=== PATIENT | female | born 1955 | race Caucasian/White ===

== ENCOUNTER 2021-08-15 08:44 | Emergency (ER) | payer MEDICARE, SELFPAY ==
--- NOTE | 2021-08-15 08:47 | ED.SKABFB ---
HPI - Skin/Abscess/Foreign Bdy General Chief complaint: Skin/Abscess/Foreign Body Stated complaint: right finger wasp sting Time Seen by Provider: 08/15/21 08:46 Source: patient Mode of arrival: ambulatory Limitations: no limitations History of Present Illness HPI narrative: Ms. Grande is a 66-year-old female patient presenting to the clinic today with complaints of a wasp sting to her right finger that occurred on Thursday. She reports that she picked up a habitat conservation planner and a box was under the lip of the plantar and she thinks she was stung twice to the lateral mid right third finger. Bruising and swelling noted to the finger and she is having difficulty bending the finger due to the pain and swelling. Related Data Home Medications Medication Instructions Recorded Confirmed duloxetine mg PO 08/15/21 gabapentin 08/15/21 hydroxychloroquine PO 08/15/21 isosorbide mononitrate mg PO 08/15/21 latanoprost drp 08/15/21 levothyroxine 08/15/21 metoprolol succinate PO 08/15/21 metoprolol succinate PO 08/15/21 oxybutynin chloride mg PO 08/15/21 oxybutynin chloride mg PO 08/15/21 rosuvastatin mg 08/15/21 tramadol mg 08/15/21 Allergies Allergy/AdvReac Type Severity Reaction Status Date / Time metronidazole Allergy Unknown UNKNOWN Verified 08/18/17 14:00 morphine Allergy Unknown VOMITTING Verified 08/18/17 14:00 Penicillins Allergy Unknown RASH Verified 08/18/17 14:00 Sulfa (Sulfonamide Allergy Unknown RASH Verified 08/18/17 14:00 Antibiotics) Review of Systems Review of Systems: Pertinent positives per HPI. Patient denies any fever, chills, rash, headache, visual changes, dizziness, cough, runny nose, sore throat, shortness of breath, chest pain, palpitations, nausea, vomiting, diarrhea, constipation, abdominal pain, or any urinary issues. PMFSH Comments At the time of my signature, I reviewed and agree with the nursing past medical, surgical, social, and family history. There is no relevant family history pertinent to the patient complaint. Exam Narrative: General: Well-developed, well nourished, in no apparent distress Head: Normocephalic, atraumatic. Cardio: Regular rate and rhythm, s1 and s2 normal, no murmur appreciated. Resp: Clear to auscultation bilaterally, no rhonchi, rales, wheezing or rubs. Integumentary: Blue [place], warm, and dry, intact without lesion, redness and swelling to the right third finger with site of insect sting to the lateral mid finger. Unable to bend due to swelling and pain, tender to palpation and erythemic Course Course Emergency Course: Portions of this record may have been created with voice recognition software. Level of Care: Express Care Visit Vital Signs Vital signs: Vital Signs Temperature 36.8 C 08/15/21 08:54 Pulse Rate 66 08/15/21 08:54 Respiratory Rate 16 08/15/21 08:54 Blood Pressure 131/68 08/15/21 08:54 Pulse Oximetry 100 08/15/21 08:54 Temperature 36.8 C 08/15/21 08:54 Pulse Rate 66 08/15/21 08:54 Respiratory Rate 16 08/15/21 08:54 Blood Pressure 131/68 08/15/21 08:54 Pulse Oximetry 100 08/15/21 08:54 Vital signs reviewed MDM - Skin/Abscess/Foreign Bdy MDM Narrative Medical decision making narrative: At the time of visit patient is resting comfortably on the exam table. She has an infected insect sting to the right third finger with swelling, erythema and tenderness to palpation without discharge. We will go ahead and give her a prescription for some triamcinolone cream to apply to the finger to help with localized reaction as well as some doxycycline to cover secondary infection. Other supportive measures were also discussed. patient voiced understanding of discharge instructions and agreed to treatment plan. Discharge Plan Discharge Clinical Impression: Infected insect bite or sting Patient Disposition: Home, Self-Care Condition: Stable Instructions: Insect Bite or Sting (ED) Additional Instructions: Phill
[2021-08-15 08:54] VITALS: BP 131/68; PULSE 66; RESP 16; TEMP 36.8; O2SAT 100
== END 2021-08-15 09:10 | disposition home or self-care (01) ==
LOC: EXPBETH 08:50
PROVIDERS: Emergency Provider Nurse Practitioner Family; PCP Internal Medicine
DX: L08.9 Local infection of the skin and subcutaneous tissue, unspecified (principal); T63.461A Toxic effect of venom of wasps, accidental (unintentional), initial encounter; E78.00 Pure hypercholesterolemia, unspecified; I10 Essential (primary) hypertension
CPT/HCPCS: 99213; G0463

== ENCOUNTER 2024-09-08 12:20 | Emergency (ER) | payer MEDICARE, MEDICAID, SELFPAY ==
--- NOTE | ~2024-09-08 | XR_ITS ---
XR hip LT 2V w AP pelvis 09/08/2024 13:20 Indication: Left hip pain Procedure: AP pelvis and 2 views left hip Comparison: No prior studies for comparison. Findings: Pelvic rings intact. There is residual contrast in the colon. Mild osteoarthritis of hips. No fracture, subluxation or dislocation. Right transsacral stimulator lead present. Impression: 1: Mild osteoarthritis of the hips. Reviewed, dictated and finalized at location B. Impression: 1: Mild osteoarthritis of the hips.
--- NOTE | 2024-09-08 12:23 | ED.EXTPRO ---
HPI - Extremity Problem General Chief complaint: Extremity Problem,Nontraumatic Stated complaint: Left Leg Pain Time Seen by Provider: 09/08/24 12:22 Source: patient Mode of arrival: ambulatory Limitations: no limitations History of Present Illness HPI Narrative: Cadence is a 61-year-old female patient presenting to the clinic today with complaints of left leg pain that started this morning. Pain is radiating down her her left leg. She reports yesterday she was out push mowing her yard, the neighbor's yard, and she was pulling weeds. Took some leg cramp medications this morning without relief. Rates pain 10/10 currently. Is feeling nauseous and having sweats due to the pain. Related Data Home Medications ?Medication ?Instructions ?Recorded ?Confirmed ?Last Taken ?Type duloxetine 30 mg capsule,delayed mg PO 08/15/21 Unknown History release gabapentin 600 mg tablet 08/15/21 Unknown History hydroxychloroquine 200 mg tablet PO 08/15/21 Unknown History isosorbide mononitrate 30 mg mg PO 08/15/21 Unknown History tablet,extended release 24 hr levothyroxine 25 mcg tablet 08/15/21 Unknown History metoprolol succinate 50 mg PO 08/15/21 Unknown History tablet,extended release 24 hr metoprolol succinate 50 mg PO 08/15/21 Unknown History tablet,extended release 24 hr oxybutynin chloride 10 mg mg PO 08/15/21 Unknown History tablet,extended release 24 hr oxybutynin chloride 5 mg mg PO 08/15/21 Unknown History tablet,extended release 24 hr rosuvastatin 10 mg tablet mg 08/15/21 Unknown History tramadol 50 mg tablet mg 08/15/21 Unknown History linaclotide 145 mcg capsule mcg 09/08/24 Unknown History (Linzess) pantoprazole 40 mg tablet,delayed mg PO 09/08/24 Unknown History release Allergies Allergy/AdvReac Type Severity Reaction Status Date / Time metronidazole Allergy Unknown UNKNOWN Verified 09/08/24 12:24 morphine Allergy Unknown VOMITTING Verified 09/08/24 12:24 Penicillins Allergy Unknown RASH Verified 09/08/24 12:24 Sulfa (Sulfonamide Allergy Unknown RASH Verified 09/08/24 12:24 Antibiotics) Review of Systems Review of Systems: Pertinent positives per HPI. Patient denies any fever, chills, rash, headache, visual changes, dizziness, cough, runny nose, sore throat, shortness of breath, chest pain, palpitations, nausea, vomiting, diarrhea, constipation, abdominal pain, or any urinary issues. PMFSH Comments At the time of my signature, I reviewed and agree with the nursing past medical, surgical, social, and family history. There is no relevant family history pertinent to the patient complaint. Exam Narrative: General: Well-developed, well nourished, in no apparent distress Head: Normocephalic, atraumatic. Cardio: Regular rate and rhythm, s1 and s2 normal, no murmur appreciated. Resp: Clear to auscultation bilaterally, no rhonchi, rales, wheezing or rubs. Musculoskeletal: No deformity, tender to palpation over the left SI joint with pain radiating down the medial leg, grossly normal range of motion, muscle strength strong and equal, peripheral pulse strong, no edema, no cyanosis, normal gait and station Course Course Emergency Course: Portions of this record may have been created with voice recognition software. Level of Care: Express Care Visit Vital Signs Vital signs: Vital Signs Temperature 36.9 C 09/08/24 12:36 Pulse Rate 75 09/08/24 12:36 Respiratory Rate 16 09/08/24 12:36 Blood Pressure 111/58 L 09/08/24 12:36 Pulse Oximetry 100 09/08/24 12:36 Oxygen Delivery Room Air 09/08/24 12:36 Temperature 36.9 C 09/08/24 12:36 Pulse Rate 75 09/08/24 12:36 Respiratory Rate 16 09/08/24 12:36 Blood Pressure 111/58 L 09/08/24 12:36 Pulse Oximetry 100 09/08/24 12:36 Oxygen Delivery Room Air 09/08/24 12:36 Vital signs reviewed MDM - Extremity (Nontraumatic) MDM Narrative Medical decision making narrative: At the time of visit patient is resting comfortably on the exam table. Patient appears to be nontoxic. Medications: Toradol 30 mg IM and Zofran 4 mg ODT given in the clinic today Diagnostics: Left hip x-ray with AP pelvis was performed and negative for any fracture or malalignment. Does show mild osteoarthritis Plan: I suspect patient has SI joint dysfunction with sciatica. Prescription for Medrol Dosepak was sent to the pharmacy. Encourage patient to use her gabapentin and her tramadol for pain. Supportive measures were discussed with the patient and they voiced understanding discharge instructions and agrees to treatment plan. Return precautions reviewed Differential Diagnosis Differential diagnosis: Likely gout and other (Sciatica pain, SI joint pain, lumbar radiculopathy, hip osteoarthritis, pathological hip fracture) Imaging Data Radiologist's impression: ITS Impressions Hip/Pelvis X-Ray 09/08/24 13:42 Impression: 1: Mild osteoarthritis of the hips. Discharge Plan Discharge Clinical Impression: Sacroiliac joint dysfunction of left side Sciatica Qualifiers: Laterality: left Qualified Code(s): M54.32 - Sciatica, left side Patient Disposition: Home Condition: Stable Instructions: Antibiotic Form, Sciatica (ED), Hip Pain (ED) Additional Instructions: Take any prescription medication only as prescribed-Medrol Dosepak Continue taking gabapentin and tramadol for pain May use heat or ice to the affected area May use blue emu, lidocaine patches, or asper cream to affected area- do not apply heat or ice directly over cream- can cause burn. Complete appropriate sciatica stretching exercises. Follow up with your PCP in 3-5 days if symptom persist. Patient Language: Japanese Prescriptions: New methylprednisolone [Medrol ([place])] 4 mg tablets,dose pack See Rx Instructions PO .COMPLEX Qty: 21 0RF Rx Instructions: orally per package directions No Action pantoprazole 40 mg tablet,delayed release (DR/EC) PO Linzess 145 mcg capsule gabapentin 600 mg tablet oxybutynin chloride 10 mg tablet extended release 24 hr PO metoprolol succinate 50 mg tablet extended release 24 hr PO metoprolol succinate 50 mg tablet extended release 24 hr PO isosorbide mononitrate 30 mg tablet extended release 24 hr PO tramadol 50 mg tablet levothyroxine 25 mcg tablet oxybutynin chloride 5 mg tablet extended release 24 hr PO hydroxychloroquine 200 mg tablet PO rosuvastatin 10 mg tablet duloxetine 30 mg capsule,delayed release(DR/EC) PO Follow-up/Referrals: UNKNOWN,DOCTOR [Primary Care Provider] - Time of Disposition: 13:52 Quality NIHSS Nursing Documentation ED NIHSS nursing documentation: reviewed/agree
[2024-09-08 12:36] VITALS: BP 111/58; PULSE 75; RESP 16; TEMP 36.9; O2SAT 100
[2024-09-08] MEDS: KETOROLAC 30 MG/ML VIAL (*BKC) IM (12:50)
[2024-09-08] MEDS: ONDANSETRON HCL ODT 4 MG TABLET SUBLINGUAL (12:51)
--- OUTSIDE RECORDS SUMMARY | 2024-09-08 12:54 | XMS_ITS | Clinical Summary ---
Author Organization [facility] Address [address] [place] [address] Care Team Providers Care Carriage Feeder Name Role Phone Janet Foote Sonya LIMA Unavailable [phone] Caroline COBB MD, Carlos M. Unavailable Sohail Clarke MD Unavailable [phone] Dilma Alonzo MD Unavailable Elizabeth Patterson MD Unavailable Jake Lo MD Unavailable [phone] Henna Ryder DPM Unavailable Shena Marie NP Primary Care Provider Allergies Active Allergy Reactions Criticality Noted Date Comments Metronidazole Unknown Morphine Vomiting Low Penicillins Itching Low Sulfa (Sulfonamide Antibiotics) Itching Low Sulfanilamide Itching Low Medications latanoprost (XALATAN) 0.005 % ophthalmic solution instill 1 drop by ophthalmic route every day into affected eye(s) in the evening 0 0 05/08/19 17 Active dezcttjj-pri-TP-ly copen-lutein (CENTRUM SILVER) 0.4-300-250 mg-mcg-mcg tablet take one by oral route one time every day 0 0 06/13/19 15 Active polyethylene glycol (MIRALAX) 17 gram/dose powder take 15 milliliter by ORAL route every day powder mixed with 8 oz. water, juice, soda, coffee, or tea 0 0 05/17/19 15 Active docusate sodium (STOOL SOFTENER) 100 mg capsule take 2 (200MG) by oral route every day at bedtime as needed 0 0 05/17/19 15 Active aspirin (ASPIRIN LOW DOSE) 81 mg tablet take 1 tablet by oral route every day 0 0 05/17/19 15 Active SUMAtriptan (IMITREX) 100 mg tabletIndications: Migraine Take 1 tablet (100 mg total) by mouth once as needed for migraine (headache) for up to 1 dose May repeat one time after 2 hours if needed. 27 tablet 1 04/05/19 21 Active Additional Information Patient not taking.Reported on 08/01/2024 Narcan 4 mg/actuation spray,non-aerosol 0 03/15/20 24 Active gabapentin (NEURONTIN) 600 mg tablet Take 1 tablet (600 mg total) by mouth 3 (three) times a day 270 tablet 1 03/31/19 25 Active traMADoL (ULTRAM) 50 mg tablet Take 1 tablet (50 mg total) by mouth every 8 (eight) hours as needed for pain 270 tablet 03/31/19 25 Active isosorbide mononitrate ER (IMDUR) 30 mg 24 hr tablet TAKE 1 TABLET BY MOUTH EVERY DAY 90 tablet 3 06/03/19 25 Active ondansetron ODT (ZOFRAN-ODT) 4 mg disintegrating tabletIndications: Nausea Take 1 tablet (4 mg total) by mouth every 6 (six) hours as needed for nausea or vomiting 20 tablet 1 06/17/19 25 Active hydroxychloroquine (PLAQUENIL) 200 mg tabletIndications: Systemic Lupus Erythematosus Take 1 tablet (200 mg total) by mouth daily 90 tablet 2 07/08/19 25 Active rosuvastatin (CRESTOR) 10 mg tabletIndications: Mixed hyperlipidemia Take 1 tablet (10 mg total) by mouth daily 90 tablet 1 07/14/19 25 026 Active metoprolol XL (TOPROL-XL) 50 mg extended release tabletIndications: Primary hypertension Take 1 tablet (50 mg total) by mouth daily 90 tablet 1 07/14/19 25 Active levothyroxine (SYNTHROID) 25 mcg tabletIndications: Acquired hypothyroidism Take 1 tablet (25 mcg total) by mouth daily 90 tablet 1 07/14/19 25 026 Active hydrocortisone 2.5 % ointment Apply topically 2 (two) times a day for 14 days 30 g 08/03/19 25 Active linaCLOtide (LINZESS) 145 mcg capsule Take 1 capsule (145 mcg total) by mouth daily 90 capsule 09/01/[address] (PROTONIX) 40 mg EC tablet Take 1 tablet (40 mg total) by mouth daily 30 tablet 2 09/03/19 25 025 Active linaCLOtide (LINZESS) 145 mcg capsule Take 1 capsule (145 mcg total) by mouth daily 90 capsule 06/09/19 25 025 Discontinu ed(Reorder ) vonoprazan (Voquezna) 20 mg tablet Take 20 mg by mouth 2 (two) times a day for 14 days 28 tablet 08/10/19 25 025 amoxicillin 500 mg tablet/capsule Take 2 tablet/capsule (1,000 mg total) by mouth 3 (three) times a day for 14 days 84 tablet/caps ule 08/10/19 25 025 Active Problems Problem Noted Date Diagnosed Date Positive H. pylori test 05/16/2024 Encounter for screening colonoscopy 04/12/2024 Hereditary and idiopathic neuropathy 04/07/2024 Overview (04/07/2024): Follows with Neurology Assessment & Plan (04/07/2024 9:07 AM BLOWER AND COMPRESSOR ASSEMBLER): - chronic condition - follows with Neurology - on Gabapentn 600 mg TID - currently on Tramadol PRN per neurology - affects her ambulation/mobility - provided handicap placard Screen for colon cancer 04/07/2024 Assessment & Plan (04/07/2024 9:17 AM BLOWER AND COMPRESSOR ASSEMBLER): - colon cancer screening due - last colonoscopy done on 2013, repeat in 10 years, placed referral to GI Hematuria 02/11/2024 Urgency incontinence 02/11/2024 Overview (04/07/2024): Following with Urology Assessment & Plan (04/07/2024 9:12 AM BLOWER AND COMPRESSOR ASSEMBLER): - chronic condition, better controlled - has a baldder stimulator interstim X device placed by Urology - this was inserted 02/2024 for overactive bladder and urinary incontiennce - follows with Urology Gastroesophageal reflux disease 12/30/2023 Assessment & Plan (12/31/2023 6:08 AM CDT): -chronic, stable -patient currently takes pantoprazole 40 mg daily -patient encouraged to continue avoiding trigger foods and remaining upright at least 30 minutes after eating or drinking -refill of medication provided -continue current treatment plan Body mass index (BMI) of 19.0 to 19.9 in adult 1 Assessment & Plan (07/13/2024 3:43 PM CDT): Wt Readings from Last 3 Encounters: 07/13/24 48.5 kg (107 lb) 05/30/24 47.6 kg (105 lb) 05/17/24 49.9 kg (110 lb) Body mass index is 19.57 kg/m . -Stable, at goal of >19 bmi -Discussed recommendations for exercise at least 30 minutes moderate to vigorous exercise as tolerated most days of the week. (minimum 150 minutes weekly) -Discussed importance of well-balanced diet Assessment & Plan (12/31/2023 6:07 AM CDT): Wt Readings from Last 3 Encounters: 12/30/23 50.2 kg (110 lb 9.6 oz) 10/08/23 49.4 kg (108 lb 12.8 oz) 09/14/23 50.6 kg (111 lb 9.6 oz) Body mass index is 19.28 kg/m . -Stable, not at goal of >19 bmi -Discussed recommendations for exercise at least 30 minutes moderate to vigorous exercise as tolerated most days of the week. (minimum 150 minutes weekly) -Discussed importance of well-balanced diet Trigger middle finger of right hand 12/30/2023 Assessment & Plan (12/31/2023 6:10 AM CDT): -new complaint, chronic -patient reports difficulty with straightening out her right middle finger -patient endorses a previous history of trigger finger in other fingers and hand -referral to sports Medicine placed -continue current treatment plan Thrombocytosis 06/23/2022 Assessment & Plan (02/08/2023 10:40 PM BLOWER AND COMPRESSOR ASSEMBLER): Mild chronic and asymptomatic. Check yearly Assessment & Plan (06/23/2022 9:55 AM CDT): Mild chronic and asymptomatic. Check again before next visit. Dysphagia 06/18/2021 Assessment & Plan (09/19/2021 9:42 AM CDT): Unremarkable barium swallow. GI referral. Assessment & Plan (06/18/2021 11:40 AM CDT): Modified barium swallow with speech pathology and radiology. Call back for results. Chronic rhinitis 06/13/2020 Assessment & Plan (06/13/2020 11:26 AM CDT): Try Claritin [id number]. Anemia 12/23/2018 Assessment & Plan (02/08/2023 10:39 PM BLOWER AND COMPRESSOR ASSEMBLER): Repeat CBC and laboratory workup before next visit. Assessment & Plan (03/11/2022 11:46 AM BLOWER AND COMPRESSOR ASSEMBLER): Condition is stable. CBC ordered today. Assessment & Plan (06/18/2021 11:40 AM CDT): Mild chronic stable, previous lab workup unremarkable. Assessment & Plan (12/23/2018 2:03 PM CDT): Check iron studies, TSH, free T4, B12, folate, LDH, UA with microscopy and call back for results. Symptoms of anemia discussed at length which would prompt repeat visit if develops. Follow-up with her oncologist/motor coach tour operator as they direct. Acquired hypothyroidism 05/13/2018 Assessment & Plan (07/13/2024 3:44 PM CDT): Lab Results Component Value Date TSH 3.66 06/29/2024 -chronic, controlled -patient currently takes Synthroid 25 mcg daily -most recent TSH within normal range -recent lab work stable -continue current treatment plan Assessment & Plan (04/07/2024 9:02 AM BLOWER AND COMPRESSOR ASSEMBLER): Lab Results Component Value Date TSH 3.52 01/01/2024 -chronic, stable -patient currently takes Synthroid 25 mcg daily -most recent TSH within normal range -will recheck lab work The current medical regimen is effective; continue present plan and medications. Assessment & Plan (12/31/2023 6:07 AM CDT): Lab Results Component Value Date TSH 2.61 06/08/2023 -chronic, stable -patient currently takes Synthroid 25 mcg daily -most recent TSH within normal range -will recheck lab work -continue current treatment plan Assessment & Plan (02/08/2023 10:39 PM BLOWER AND COMPRESSOR ASSEMBLER): Patient is asymptomatic on current dose of levothyroxine and TSH free T4 are normal and we will repeat levels before next visit. Assessment & Plan (06/23/2022 9:56 AM CDT): Patient is asymptomatic on current dose of levothyroxine and TSH free T4 are normal and we will repeat levels before next visit. Assessment & Plan (09/19/2021 9:41 AM CDT): Patient is asymptomatic on current dose of levothyroxine and TSH free T4 are normal and we will repeat levels before next visit. Assessment & Plan (06/18/2021 11:39 AM CDT): Patient has fatigue and constipation with elevated TSH and low free T4. Start levothyroxine 25 mcg on empty stomach. Call back for any side effects. Check TSH and free T4 before next visit. Assessment & Plan (06/13/2020 11:25 AM CDT): She remains asymptomatic will check TSH and free T4 in 1 year. Assessment & Plan (05/18/2019 6:09 PM BLOWER AND COMPRESSOR ASSEMBLER): She remains asymptomatic will check thyroid studies once yearly. Assessment & Plan (06/21/2018 6:27 PM CDT): Currently asymptomatic and will check labs again before next visit. Osteoporosis 06/04/2017 Overview (02/08/2023): Risedronate began 05/2017 Prolia began November 2022 Assessment & Plan (12/31/2023 6:06 AM CDT): -chronic, stable -last DEXA bone scan was August 2022 -currently takes Prolia injections; last injection was 12/15/2023 -encourage patient to continue weight-bearing exercises and vitamin-D/calcium supplement -continue current treatment plan Assessment & Plan (02/08/2023 10:40 PM BLOWER AND COMPRESSOR ASSEMBLER): Calcium, vitamin-D, weight-bearing exercise continue Prolia Assessment & Plan (06/23/2022 9:56 AM CDT): Calcium, vitamin-D, weight-bearing exercise, risedronate and repeat bone density scan before next visit. Significantly improved, may consider drug holiday as risedronate began May 2017. Assessment & Plan (06/18/2021 11:38 AM CDT): Continue risedronate, calcium, vitamin-D, weight-bearing exercise repeat bone density scan September 2021. Hold risedronate for any further dental procedures. Assessment & Plan (06/13/2020 11:25 AM CDT): Continue calcium, vitamin-D, weight-bearing exercise, risedronate repeat bone density scan September 2021. Assessment & Plan (05/18/2019 6:10 PM BLOWER AND COMPRESSOR ASSEMBLER): Continue calcium, vitamin-D, weight-bearing exercise, risedronate and repeat bone density scan every 2 years. Assessment & Plan (06/21/2018 6:26 PM CDT): Continue calcium, vitamin-D, weight-bearing exercise, risedronate and repeat bone density scan May 19, 2019. Migraine without aura 05/11/2017 Assessment & Plan (12/31/2023 6:11 AM CDT): -chronic, stable -patient currently takes sumatriptan 100 mg as needed -patient follows with Neurology -patient reports having migraine headache maybe 1-2 a month -encourage patient to use p.r.n. migraine medication if needs so -continue current treatment plan Assessment & Plan (06/21/2018 6:26 PM CDT): Continue Imitrex p.r.n. Assessment & Plan (05/11/2017 6:13 PM BLOWER AND COMPRESSOR ASSEMBLER): Trial of Imitrex. Discuss further with her neurologist if no improvement. Preventative health care 05/11/2017 Assessment & Plan (12/30/2023 2:29 PM CDT): - New or chronic worsening conditions: trigger finger - Mental health: no significant psychiatric/mental health conditions affecting her day to day functioning - Dental health: Up to date with regular dental care and cleaning. Discussed importance of regular tooth brushing, flossing, and dental visits. - Nutrition: Stressed importance of moderation in sodium/caffeine intake, saturated fat and cholesterol, caloric balance, sufficient intake of fresh fruits, vegetables - Exercise: Stressed the importance of regular exercise - Immunizations: Age and sex appropriate immunizations reviewed and offered - Cervical Cancer screening: No longer indicated - Breast Cancer screening: Up-to-date - Colon cancer screening: Due soon, order placed - Lung cancer screening: Not indicated at this time - Bone desnity/osteoporosis screening: Up-to-date - control: Postmenopausal Assessment & Plan (06/23/2022 9:59 AM CDT): Flu shot each December. Tetanus booster every 10 years. Shingrix completed. Prevnar 13/Pneumovax 23 completed. COVID booster recommended. Bone density scan ordered. Status post bilateral mastectomy. Follow-up with gynecology as they direct. Recommend moving laundry and shower up stairs or finding alternative living arrangements that can provide this. Life Alert device when walking downstairs. Ensure proper hand rail on staircase. Colonoscopy due February 2024. Will see her back in 6 months with lab sooner if needed. Assessment & Plan (06/18/2021 11:40 AM CDT): We discussed a comprehensive list of medical conditions and proposed recommendations for each. We discussed the importance of increased exercise, fall prevention, proper nutrition, and suggested joining [facility] to accomplish most of these goals. Patient was given an age appropriate Medicare preventive services checklist. Please see the EMR regarding details of their health risk assessment and preventive services checklist. Will see her back in 3 months with thyroid studies sooner if needed. Assessment & Plan (06/13/2020 11:27 AM CDT): Flu shot each December. Tetanus booster every 10 years. Shingrix completed. Pneumovax 23 days 65. COVID -19 vaccine when available. Colonoscopy due February 2024. No longer needs mammograms bilateral mastectomy. Follow-up the after school counselor as they direct. We will see her back in 1 year for physical and fasting lab sooner if needed. Assessment & Plan (05/18/2019 6:12 PM BLOWER AND COMPRESSOR ASSEMBLER): Flu shot each December. Tetanus booster every 10 years. Shingrix recommended. Second final Pneumovax at age 66. She has already had a Prevnar. Colonoscopy due February 2024. She is overdue for well-woman examination. Will see her back in 1 year for physical fasting lab sooner if needed. Assessment & Plan (06/21/2018 6:27 PM CDT): Flu shot each December. Tetanus booster every 10 years. Shingrix recommended. Mammogram yearly. Colonoscopy due February 2024. Will see her back in 1 year for physical and fasting lab sooner if needed. Assessment & Plan (05/11/2017 6:14 PM BLOWER AND COMPRESSOR ASSEMBLER): Flu shot each December. Tetanus booster every 10 years. Colonoscopy due February 2024. Declining mammogram status post bilateral mastectomies. We will see her back in 1 year with fasting lab sooner if needed. Coronary artery disease invo lving [place] coronary artery of [place] heart without angina pectoris 08/26/2016 Assessment & Plan (02/08/2023 10:39 PM BLOWER AND COMPRESSOR ASSEMBLER): Continue current medication regimen follow up with complaint inspector as they direct Assessment & Plan (06/23/2022 9:57 AM CDT): Continue current medication regimen follow up with complaint inspector as they direct. Assessment & Plan (03/11/2022 11:48 AM BLOWER AND COMPRESSOR ASSEMBLER): -condition is stable -continue seeing Dr. Clarke cardiology -please contact Dr. Clarke's office and ask him how long the aspirin 81 mg should be held prior to cataract surgery. Assessment & Plan (06/18/2021 11:39 AM CDT): Continue current medication regimen follow up with complaint inspector as they direct Assessment & Plan (06/13/2020 11:26 AM CDT): Continue current medication regimen and follow up with complaint inspector as they direct. Assessment & Plan (05/18/2019 6:10 PM BLOWER AND COMPRESSOR ASSEMBLER): Continue current medication regimen and follow up with complaint inspector as they direct. Assessment & Plan (06/21/2018 6:26 PM CDT): Continue rosuvastatin, metoprolol, isosorbide mononitrate, aspirin and follow up with complaint inspector as they direct. Assessment & Plan (05/11/2017 6:13 PM BLOWER AND COMPRESSOR ASSEMBLER): Continue aspirin, metoprolol, rosuvastatin, imdur Glaucoma 05/08/2016 Overview (04/07/2024): Follows with Ophthalmology Assessment & Plan (05/11/2017 6:14 PM BLOWER AND COMPRESSOR ASSEMBLER): Follow-up with her operations project manager as they direct. Systemic lupus erythematosus 05/08/2016 Overview (04/07/2024): Follows with Rheumathology Assessment & Plan (12/31/2023 6:08 AM CDT): -chronic, stable -follows with Rheumatology -currently takes Plaquenil 200 mg daily Continue current treatment plan with specialist Assessment & Plan (02/08/2023 10:41 PM BLOWER AND COMPRESSOR ASSEMBLER): Stable on Plaquenil and should follow up with grain handler as they direct Assessment & Plan (06/23/2022 9:55 AM CDT): Well controlled on Plaquenil and follow-up with grain handler as they direct. Assessment & Plan (06/18/2021 11:38 AM CDT): Well controlled on her Plaquenil and should follow-up with grain handler as they direct. Assessment & Plan (06/13/2020 11:25 AM CDT): Well controlled on her Plaquenil and should follow-up with grain handler as they direct. Assessment & Plan (05/18/2019 6:09 PM BLOWER AND COMPRESSOR ASSEMBLER): Continue her Plaquenil and follow up with her grain handler as they direct. Assessment & Plan (06/21/2018 6:26 PM CDT): Continue Plaquenil and follow up with her grain handler as they direct. Assessment & Plan (05/11/2017 6:12 PM BLOWER AND COMPRESSOR ASSEMBLER): Continue Plaquenil and follow up with her grain handler as they direct. Dupuytren's contracture 01/09/2015 Assessment & Plan (06/13/2020 11:27 AM CDT): Referral to plastic surgery. Malignant neoplasm of breast 04/21/2014 Overview (05/11/2017): L 1997 s/pmastectomy; R 2004 mastectomy and chemo Assessment & Plan (05/18/2019 6:11 PM BLOWER AND COMPRESSOR ASSEMBLER): Patient has been discharged by her oncologist. No need for mammograms considering bilateral mastectomy. Assessment & Plan (06/21/2018 6:27 PM CDT): Follow-up with her oncologist as they direct. Yearly mammograms recommended. Assessment & Plan (05/11/2017 6:13 PM BLOWER AND COMPRESSOR ASSEMBLER): Follow-up with her oncologist as they direct. Neurofibromatosis 04/21/2014 Assessment & Plan (06/23/2022 9:57 AM CDT): No current complaints and continue observation. Assessment & Plan (06/18/2021 11:39 AM CDT): No current complaints and continue observation. Assessment & Plan (06/13/2020 11:26 AM CDT): No current complaints and continue observation. Assessment & Plan (05/18/2019 6:11 PM BLOWER AND COMPRESSOR ASSEMBLER): Continue observation for now. Assessment & Plan (06/21/2018 6:27 PM CDT): Continue observation for now. Assessment & Plan (05/11/2017 6:14 PM BLOWER AND COMPRESSOR ASSEMBLER): Continue observation for now. Hidradenitis suppurativa 08/13/2013 Assessment & Plan (06/18/2021 11:37 AM CDT): Well controlled on minocycline Assessment & Plan (05/18/2019 6:10 PM BLOWER AND COMPRESSOR ASSEMBLER): Well controlled on minocycline. Assessment & Plan (06/21/2018 6:25 PM CDT): Continue minocycline. Assessment & Plan (05/11/2017 6:09 PM BLOWER AND COMPRESSOR ASSEMBLER): Continue minocycline with good success. Hemorrhoids 08/13/2013 Primary hypertension 08/13/2013 Assessment & Plan (07/13/2024 3:44 PM CDT): BP Readings from Last 3 Encounters: 07/13/24 90/62 05/30/24 126/72 05/17/24 128/66 -chronic, controlled -currently taking metoprolol 50 mg -patient reports checking blood pressure regularly at home -encourage patient to continue low-sodium diet -refill of medication provided -continue current treatment plan Assessment & Plan (04/07/2024 9:03 AM BLOWER AND COMPRESSOR ASSEMBLER): BP Readings from Last 3 Encounters: 04/07/24 126/70 03/31/24 129/60 03/15/24 107/70 -chronic, stable -currently taking metoprolol 50 mg -has known CAD -patient reports checking blood pressure regularly at home -encourage patient to continue low-sodium diet The current medical regimen is effective; continue present plan and medications. Assessment & Plan (12/30/2023 9:57 PM CDT): BP Readings from Last 3 Encounters: 12/30/23 109/69 10/08/23 104/60 09/14/23 130/80 -chronic, stable -currently taking metoprolol 50 mg -patient reports checking blood pressure regularly at home -encourage patient to continue low-sodium diet -refill of medication provided -continue current treatment plan Assessment & Plan (09/14/2023 1:05 PM CDT): Recommend DASH diet, heart-healthy lifestyle, exercise. Discussed the risks of hypertension. Assessment & Plan (02/08/2023 10:40 PM BLOWER AND COMPRESSOR ASSEMBLER): Blood pressure well controlled on metoprolol Assessment & Plan (06/23/2022 9:56 AM CDT): Well controlled on her metoprolol. Assessment & Plan (03/11/2022 11:47 AM BLOWER AND COMPRESSOR ASSEMBLER): HPI: Condition is stable A&P: Discussed/ordered labs, encouraged healthy, low carbohydrate lifestyle and at least 150min/week of exercise, continue on metoprolol XL 50 mg daily. Assessment & Plan (09/19/2021 9:41 AM CDT): Well controlled on the current regimen. Avoidance of salt, proper body weight, and routine exercise recommended. Assessment & Plan (06/18/2021 11:38 AM CDT): Well controlled on the current regimen. Avoidance of salt, proper body weight, and routine exercise recommended. Assessment & Plan (06/13/2020 11:25 AM CDT): Well controlled on the current regimen. Avoidance of salt, proper body weight, and routine exercise recommended. Assessment & Plan (05/18/2019 6:10 PM BLOWER AND COMPRESSOR ASSEMBLER): Well controlled on the current regimen. Avoidance of salt, proper body weight, and routine exercise recommended. Assessment & Plan (06/21/2018 6:25 PM CDT): Well controlled on the current regimen. Avoidance of salt, proper body weight, and routine exercise recommended. Assessment & Plan (05/11/2017 6:12 PM BLOWER AND COMPRESSOR ASSEMBLER): Well controlled on the current regimen. Avoidance of salt, proper body weight, and routine exercise recommended. Mixed hyperlipidemia 11/05/2012 Assessment & Plan (07/13/2024 3:44 PM CDT): -chronic, controlled -currently takes rosuvastatin 10 mg -Discussed importance of well-balanced diet -recent lab values stable -refill of medication provided -continue current treatment plan Assessment & Plan (04/07/2024 9:02 AM BLOWER AND COMPRESSOR ASSEMBLER): -chronic, stable -currently takes rosuvastatin 10 mg - has known CAD, goal LDL <70 -Discussed importance of well-balanced diet. The current medical regimen is effective; continue present plan and medications. Lab Results Component Value Date CHOL 160 01/01/2024 CHOL 154 06/08/2023 CHOL 128 12/09/2022 Lab Results Component Value Date HDL 75 01/01/2024 HDL 69 06/08/2023 HDL 70 12/09/2022 Lab Results Component Value Date LDLCALC 68 01/01/2024 LDLCALC 71 06/08/2023 LDLCALC 47 12/09/2022 LDL 209 (H) 05/08/2016 Lab Results Component Value Date TRIG 94 01/01/2024 TRIG 72 06/08/2023 TRIG 54 12/09/2022 Assessment & Plan (12/30/2023 9:57 PM CDT): -chronic, stable -currently takes rosuvastatin 10 mg -Discussed importance of well-balanced diet. -will recheck lab values -refill of medication provided -continue current treatment plan Assessment & Plan (02/08/2023 10:39 PM BLOWER AND COMPRESSOR ASSEMBLER): Well controlled on current therapy and will check a lipid panel and LFTs in 6 months. Assessment & Plan (06/23/2022 9:56 AM CDT): Well controlled on current therapy and will check a lipid panel and LFTs in 6 months. Assessment & Plan (09/19/2021 9:41 AM CDT): Well controlled on current therapy and will check a lipid panel and LFTs in 9 months. Assessment & Plan (06/18/2021 11:38 AM CDT): Well controlled on current therapy and will check a lipid panel and LFTs in 12 months. Assessment & Plan (06/13/2020 11:26 AM CDT): Well controlled on current therapy and will check a lipid panel and LFTs in 12 months. Assessment & Plan (05/18/2019 6:10 PM BLOWER AND COMPRESSOR ASSEMBLER): Well controlled on current therapy and will check a lipid panel and LFTs in 6 months. Assessment & Plan (06/21/2018 6:25 PM CDT): Well controlled on current therapy and will check a lipid panel and LFTs in 12 months. Assessment & Plan (05/11/2017 6:10 PM BLOWER AND COMPRESSOR ASSEMBLER): Well controlled on current therapy and will check a lipid panel and LFTs in 12 months. Resolved Problems Problem Noted Date Diagnosed Date Resolved Date Acute bronchitis 05/01/2023 12/29/2023 Assessment & Plan (05/24/2023 2:51 PM BLOWER AND COMPRESSOR ASSEMBLER): Azithromycin Tessalon Perles and call back if no improvement. Muscle strain 05/01/2023 04/07/2024 Assessment & Plan (05/24/2023 2:51 PM BLOWER AND COMPRESSOR ASSEMBLER): Stretching exercises demonstrated. Avoid aggravating activities. Low-dose anti-inflammatories and call back if no improvement for physical therapy evaluation. H. pylori infection 06/23/2022 12/29/19 Assessment & Plan (06/23/2022 9:39 AM CDT): F/u with GI as they direct. Preop examination 05/15/2022 05/01/2023 Assessment & Plan (05/15/2022 9:29 AM BLOWER AND COMPRESSOR ASSEMBLER): She understands that no procedure is risk-free but accepts those as discussed during OV and wishes to proceed. She was instructed to contact us if any new symptoms or problems arise between now and surgery date. According to the RCRI, the patient's number of risk factors stratifies patient to class I, which carries a 3.9% risk of major cardiovascular complications She is medically optimized for surgery Age-related cataract of both eyes 03/11/2022 04/07/2024 Assessment & Plan (05/15/2022 9:29 AM BLOWER AND COMPRESSOR ASSEMBLER): She will be going For left cataract extraction 05/30/2022 Assessment & Plan (03/11/2022 11:48 AM BLOWER AND COMPRESSOR ASSEMBLER): Patient is scheduled for right cataract surgery on 03/20/2022. Pt has had previous surgery without complication from anesthesia. Pt has never been told she has a small or difficult airway to intubate. Pt appears to be a good candidate for surgery with low risk for complication due to anesthesia. Pt is cleared for surgery. Revised cardiac risk index for preoperative risk score: 6.0% Creatinine clearance cannot be calculated (Patient's most recent lab result is older than the maximum 90 days allowed.) Will obtain current creatinine clearance level. At low risk for fall 06/18/2021 023 Assessment & Plan (06/18/2021 11:40 AM CDT): Timed get up and go test normal. Pain of right lower extremity 02/17/2020 04/07/2024 Assessment & Plan (02/17/2020 3:42 PM BLOWER AND COMPRESSOR ASSEMBLER): X-rays of her right hip and knee today as I am concerned that she may have an underlying fracture. She has been walking on this for at least 4 weeks so if positive will recommend rest over the weekend and orthopedic referral on Thursday. If negative, consider physical therapy and then if no improvement, either CT or MRI of her hip and orthopedic evaluation. Hypercholesterolemia 05/08/2016 018 Overview (07/05/2016): Hypercholesterolemia Assessment & Plan (05/11/2017 6:12 PM BLOWER AND COMPRESSOR ASSEMBLER): Well controlled on current therapy and will check a lipid panel and LFTs in 12 months. Thumb pain 01/29/2015 04/07/2024 Shoulder pain 01/08/2015 04/07/2024 Overview (07/05/2016): Shoulder pain Cough 11/10/2013 05/11/2017 Overview (07/05/2016): Cough Iron deficiency anemia 02/07/201105/11 Overview (07/03/2016): Iron deficiency anemia Encounters Date Type Department Care Team Description 08/30/2024 Telephone [facility] Gastroenterology at [address] [place] [phone] Janet Foote PA 08/25/2024 Results Follow-Up [facility] Gastroenterology at [address] [place] [address] Janet Foote PA H. pylori breath test 08/24/2024 9:05 AM CDT Lab [address] [phone] Helicobacter pylori infection 08/12/2024 Results Follow-Up [facility] Gastroenterology at [address] [place] [address] Janet Foote PA FL Esophagram, Double Contrast 08/05/2024 10:51 AM CDT - 08/05/2024 11:59 PM CDT Hospital Encounter [facility] [address] [place] [phone] [facility] Fluoro Esophageal dysphagia Discharge Disposition: Discharge to home or self care 08/03/2024 Results Follow-Up [facility] Gastroenterology at [address] [place] [address] Janet Foote PA H. pylori breath test 08/02/2024 12:30 PM CDT Lab [address] [phone] Helicobacter pylori infection 08/01/2024 1:00 PM CDT Office Visit [facility] Gastroenterology at [address] [place] [address] Janet Foote PA Helicobacter pylori infection (Primary Dx); Constipation, unspecified constipation type; Epigastric pain; Nausea; Esophageal dysphagia; Hemorrhoids, unspecified hemorrhoid type 07/22/2024 ACO Clinical Pharmacist [address] [address] Cindy East [facility] 07/15/2024 Orders Only [facility] Primary Care at [address] [phone] Shena Marie NP Cyst of left ovary (Primary Dx); Urgency incontinence 07/13/2024 3:30 PM CDT Office Visit [facility] Primary Care at [address] [phone] Shena Marie, ELVIA Primary hypertension (Primary Dx); Mixed hyperlipidemia; Acquired hypothyroidism; Impacted cerumen of right ear; Body mass index (BMI) of 19.0 to 19.9 in adult 07/13/2024 ACO Clinical Pharmacist [facility] Organization [address] [place] [id number] Cindy [place], [facility] 07/13/2024 Orders Only [facility] Primary Care at [address] [phone] Shena Marie, RN FIELD CASE MANAGER Impacted cerumen of right ear (Primary Dx) 07/13/2024 Telephone [facility] Primary Care at [address] [phone] Shena Marie, RN FIELD CASE MANAGER Referral 07/11/2024 ACO Clinical Pharmacist [address] [address] Cindy [place], [facility] 07/01/2024 Results Follow-Up [facility] Primary Care at [address] [phone] Shena Marie, ELVIA CBC with auto differential, Comprehensive metabolic panel, Lipid panel, Additional followed-up results: 4 06/29/2024 9:35 AM CDT Lab [address] Thrombocytosis; Primary hypertension; Mixed hyperlipidemia; Acquired hypothyroidism 06/21/2024 8:30 AM CDT Clinical Support [facility] Primary Care at [address] [phone] Age-related osteoporosis without current pathological fracture (Primary Dx) 06/21/2024 Orders Only [facility] Primary Care at [address] [phone] Shena Marie, RN FIELD CASE MANAGER Mixed hyperlipidemia (Primary Dx); Primary hypertension; Acquired hypothyroidism; Thrombocytosis 06/16/2024 Orders Only [facility] Primary Care at [address] [phone] Shena Marie, ELVIA Nausea (Primary Dx) 06/15/2024 Nurse Triage [facility] Primary Care at [address] [phone] Shena Marie, RN FIELD CASE MANAGER 06/15/2024 Telephone [facility] Primary Care at [address] [place] [address] Shena Marie, ELVIA Medical Question/Miscellaneou s from Last 3 Months Immunizations Immunization Administration Dates Next Due Influenza, Quadrivalent, Hig h Dose, Preservative Free, Intrr 12/23/2022,01/09/2022 Influenza, Quadrivalent, Spl it, Intramuscular 01/01/2016,12/31/2015 Influenza, Quadrivalent, Spl it, Preservative Free, Intramuscular 01/16/2021,01/04/2020,12/23/2018,01/13,01/15/2017 Influenza, Split 01/18/2013 Influenza, Trivalent, High D ose, Split, Preservative Free, Intramuscular 12/15/2023 Influenza, Trivalent, IM (MDV) 5,01/17/2014,01/17/2014,01/12 Influenza, Unspecified 12/23/2018(Deferred: Hellen ent Refused) Moderna SARS-CoV-2 Monovalen t Vaccination (12+ YRS) 07/31/2020,07/03/2020 Pneumococcal Conjugate PCV 13 02/25/2016 Pneumococcal Polysaccharide PPV23 06/18/2021, Td, adsorbed 02/27/2003 Tdap 05/08/2016,11/05/2012 ZOSTER LIVE 02/07/2015 ZOSTER Recombinant 03/15/2019,01/13/2019 Surgical History Surgery Date Site/Laterality Comments OTHER SURGICAL HISTORY 03/30/2007 - 03/29/2008 R TRIGGER FINGER OTHER SURGICAL HISTORY 03/30/2005 - 03/29/2006 R DUPUYTRENS CTX OTHER SURGICAL HISTORY 03/30/2006 - 03/29/2007 SQ CELL CA NOSE APPENDECTOMY 03/30/2011 - 03/29/2012 Appendectomy OTHER SURGICAL HISTORY L DUPUYTREN'S CONTRACTURE TOTAL ABDOMINAL HYSTERECTOMY 03/30/2000 - 03/29/2001 menorrhagia HEMORRHOID SURGERY hemorrhoidectomy x2 OTHER SURGICAL HISTORY right ring finger surgery SHOULDER SURGERY left shoulder surgery OTHER SURGICAL HISTORY right eyelid surgery OTHER SURGICAL HISTORY right should surgery OTHER SURGICAL HISTORY right temporal artery bx OTHER SURGICAL HISTORY benign tumor removed left hand OTHER SURGICAL HISTORY trapeziectomy left hand MASTECTOMY 03/30/1997 - 03/29/1998 Left MASTECTOMY 03/30/2003 - 03/29/2004 Right ER+ cancer. Chemo. Tamoxifen x 5 years, Anastrozole x 2 years. Cleared by oncology in 2019. CATARACT EXTRACTION 03/20/2022 Right CATARACT EXTRACTION 05/30/2022 Left UPPER GASTROINTESTINAL ENDOSCOPY 05/17/2024 Medical History Medical History Date Comments Malignant neoplasm of female breast (HCC) Cancer, breast Hx Other Medical (benign) Hx Other Medical mastectomy left side; Comments: [facility] 05/17/2014 - Hx Other Medical rotator cuff us rgery rt; Comments: [facility] 05/17/2014 - Hx Other Medical right temporal artery bx; Comments: [facility] 05/17/2014 - Hx Other Medical neurofibromatos is; Comments: [facility] 05/17/2014 - Hx Other Medical lupus; Comments : [facility] 06/12/2014 - Hx Other Medical genetic neurofi bromatosis; Comments: [facility] 06/12/2014 - Hx Other Medical diverticolis; C omments: [facility] 06/12/2014 - Hx Other Medical Hydradenitis us parativa Hx Other Medical Left breast can cer 1997, mastectomy; Right breast Osteoporosis GERD (gastroesophageal reflux disease) Coronary artery disease Delayed emergence from general anesthesia Hypertension Allergic rhinitis Hypothyroidism Family History Medical History Relation Name Comments Coronary artery disease Brother 1 Josué nary artery disease, premature; Heart attack Brother 2 Myocardial infa rction; Heart disease Brother 3 Heart disease; Anuerysm Father Aneurysm; Cause of : Aneurysm Heart attack Father Myocardial infa rction; Breast cancer Father's Sister Cancer -araceli ast; Anuerysm Mother Aneurysm; Cause of : Aneurysm Diabetes Mother Diabetes mellit ; Heart attack Mother Myocardial infa rction; Cause of : Myocardial infarction Other Mother at age 55 - heart attack; Ovarian cancer Mother Hypertension Sister 1 Anuerysm Sister 2 Aneurysm; Hypertension Sister 2 Asthma Sister 3 Asthma; Other Sister 4 brain bleed; Ca use of : brain bleed Heart disease Sister 5 2 Heart problems ; Diabetes Son Relation Name Status Comments Brother 1 Brother 2 Brother 3 Father (Age 55) Father's Sister Mother (Age 55) Sister 1 (Age 43) Sister 2 Sister 3 Sister 4 Sister 5 2 Son Social History Tobacco Use Types Packs/Day Years Used Date Smoking Tobacco: Former Cigarettes 0.5 15 0 05/11/1980 - 05/11/1995 Smokeless Tobacco: Never Tobacco Cessation:Counseling Given: Not Answered Comments:Smoking History Packs/day: 0.5 Cigarettes Alcohol Use Standard Drinks/Week Comments Yes 0 (1 standard drink = 0.6 oz pur e alcohol) AUDIT-C Answer Date Recorded Q1: How often do you have a drink containing alcohol? Never 07/13/2024 Q2: How many drinks containi ng alcohol do you have on a typical day when you are drinking? Patient does not drink Q3: How often do you have si x or more drinks on one occasion? Never 07/13/2024 PHQ-2 Answer Date Recorded PHQ-2 Total Score (If total score is 3 or more points, staff should administer the PHQ-9) 0 07/13/2024 Personal Safety Answer Date Recorded Have you ever been in or are you currently in a harmful physical or emotional relationship or is someone making you feel afraid or unsafe? Denies 05/17/2024 Comments No Sex and Gender Information Value Date Recorded Sex Assigned at Not on file Legal Sex Female 4:23 PM BLOWER AND COMPRESSOR ASSEMBLER Gender Identity Not on file Sexual Orientation Not on file Obstetrics History Para Term AB IAB SAB Ectopic Multiple Livin g Live Births 1 1 1 0 0 1 Date Outcome GA Total Labor Labor/2nd/3rd Weight Sex Type Anes PTL Luz A1 A5 Name Clin Term Vag-Spo nt Last Filed Vital Signs Vital Sign Reading Time Taken Comments Blood Pressure 145/68 08/01/2024 12:52 PM CDT Pulse 87 08/01/2024 12:52 PM CDT Temperature 36.8 C (98.2 F) 07/13/2024 3:15 PM CDT Respiratory Rate 16 07/13/2024 3:15 PM CDT Oxygen Saturation 98% 08/01/2024 12:52 PM CDT Inhaled Oxygen Concentration - - Weight 50.5 kg (111 lb 4.8 oz) 08/01/2024 12:52 PM CDT Height 157.5 cm (5' 2) 08/01/2024 12:52 PM CDT Body Mass Index 20.36 08/01/2024 12:52 PM CDT Plan of Treatment Upcoming Encounters Date Type Department Care Team (Late st Contact Info) Description 10/06/2024 10:30 AM CDT Hospital Encounter [facility] [address] [place] [address] Kalyan Grimes DO [address] [place] [address] 10/06/2024 10:30 AM CDT - 10/06/2024 11:00 AM CDT Surgery [facility] [address] [place] [address] Kalyan Grimes DO [address] [place] [address] COLONOSCOPY Scheduled Procedures Name Priority Associated Diagnoses Date/Ti me COLONOSCOPY Encounter for screening colonoscopy 10/06/2024 10:30 AM CDT Health Maintenance Due Date Last Done Comments Covid-19 Vaccine (2023- 5 season) 2023 05/18/2021, 07/31/2020, 07/03/2020 Colon Cancer Screening-Colonoscopy 03/28/2024 03/28/2014, 03/28/2014, 03/28/2014 Osteoporosis Screening-Bone Density Scan 09/03/2024 09/03/2022, 10/10/2019, 05/18/2017 Well Visit 65+ 12/29/2024 12/30/2023, 04/2023, 10/08/2023, Additional history exists Depression Screening 07/13/2025 07/13/2024, 04/07/2024, 12/30/2023, Additional history exists Fall Risk Assessment 07/13/2025 07/13/2024, 04/07/2024, 03/31/2024, Additional history exists DTaP/Tdap/Td Vaccine (3 - Td or Tdap) 05/08/2026 05/08/2016, 11/05/2012, 02/27/2003 Colon Cancer Screening-CT Colonography Discontinued 03/28/2014, 03/28/2014, 03/28/2014, Additional history exists Colon Cancer Screening-DNA Stool Discontinued 03/28/2014, 03/28/2014, 03/28/2014, Additional history exists Colon Cancer Screening-FIT Discontinued 03/28, 03/28/2014, 03/28/2014, Additional history exists Colon Cancer Screening-Sigmoidoscopy Discontinued 03/28/2014, 03/28/2014, 03/28/2014, Additional history exists Breast Cancer Screening-Mammogram Discontinued 016 Hepatitis C Screening Completed 08/18/2016, 017 Zoster Vaccine Completed 03/15/2019, 12/28, 02/07/2015 Pneumococcal vaccine 65+ Completed 022, 02/25/2016, 11/14/2004 Influenza Vaccine Completed 12/15/2023, , 01/09/2022, Additional history exists Hepatitis B Screening Completed 01/01/2024 Medical Devices Implanted Type Area Installation & Maintenance Executive Device Identifier Shelf Expiration Date Model / Serial / Lot [employer] Kit Lead Neurostimulator Urinary Control Sacral Test Interstim [id number] - [id number] Implanted:Qty: 1 on 03/01/2024 by Jake Lo MD at [facility] N/A: Back [employer] [id number] / / [id number] [employer] Lead Neurostimulator Urinary Control Sacral Test Interstim [id number] - [id number] Implanted:Qty: 1 on 03/01/2024 by Jake Lo MD at [facility] N/A: Back [employer] [id number] / / [id number] [employer] Envelope Absrb 2.7x2.5in Antibacterial Tyrx Medium Strl [id number] - [id number] Implanted:Qty: 1 on 03/15/2024 by Jake Lo MD at [facility] N/A: Buttocks [employer] 11/06/2024 [id number] / / [id number] [employer] Kit Lead Neurostimulator Percutaneous 4.32mm Spacing Interstim Surescan 28cm [id number] - [id number] Implanted:Qty: 1 on 03/15/2024 by Jaek Lo MD at [facility] N/A: Buttocks [employer] 10/18/2025 [id number] / / [id number] Med[employer] Generator Neurostimulator Bowel Bladder Recharge Free Interstim X [id number] - [id number] - [id number] Implanted:Qty: 1 on 03/15/2024 by Jake Lo MD at [facility] [employer] 07/11/2025 [id number] / [id number] / Procedures Procedure Name Priority Date/Time Associated Diagnosis Comments H. PYLORI BREATH TEST Routine 08/24/2024 9:26 AM CDT Helicobacter pylori infection FL ESOPHAGRAM, DOUBLE CONTRAST Schedule Routine, Read Routine (OP Routine) 08/05/2024 11:27 AM CDT Esophageal dysphagia H. PYLORI BREATH TEST Routine 08/02/2024 12:55 PM CDT Helicobacter pylori infection [place] REMOVAL IMPACTED CERUMEN IRRIGATION/LVG UNILAT Routine 07/13/2024 3:30 PM CDT Impacted cerumen of right ear [place] REMOVAL IMPACTED CERUMEN INSTRUMENTATION UNILAT Routine 07/13/2024 3:30 PM CDT Impacted cerumen of right ear EGFR Routine 06/29/2024 9:35 AM CDT Primary hypertension DIFFERENTIAL AUTO Routine 06/29/2024 9:35 AM CDT Thrombocytosis T4, FREE Routine 06/29/2024 9:35 AM CDT Acquired hypothyroidism TSH Routine 06/29/2024 9:35 AM CDT Acquired hypothyroidism LIPID PANEL Routine 06/29/2024 9:35 AM CDT Mixed hyperlipidemia COMPREHENSIVE METABOLIC PANEL Routine 06/29/2024 9:35 AM CDT Primary hypertension CBC WITH AUTO DIFFERENTIAL Routine 06/29/2024 9:35 AM CDT Thrombocytosis DEXA AXIAL SKELETON BONE DENSITY 1 OR MORE SITES Schedule Routine, Read Routine (OP Routine) 09/03/2022 7:27 AM CDT Osteoporosis, unspecified osteoporosis type, unspecified pathological fracture presence HEPATITIS C AB REFLEX RNA QUANT PCR Routine 08/18/2016 8:45 AM CDT HM MAMMOGRAPHY Routine 05/02/2015 COLONOSCOPY IMAGES 03/28/2014 from Last 3 Months or Most Recently Relevant to Health Maintenance Results * H. pylori breath test (08/24/2024 9:26 AM CDT) H. pylori, breath test Negative Negative Covert ref Lab Comment: Result indicates the absence of current Helicobacter pylori infection. Test Performed by: [facility] [address] [place] [address] [place]: Aliya Whyte Ph.D.; CLIA# [id number] Breath 08/24/2024 9:26 AM CDT 08/24/2024 9:41 AM CDT Narrative [facility] ([facility]) - 08/25/2024 1:06 PM CDT Complete two weeks after completion of treatment regimen us Janet LIMA LAB BODY FLUIDS AND STOO LS ORDERABLES Final Result [facility]) 1 [facility] [place] [address] Covert ref Lab * FL Esophagram, Double Contrast (08/05/2024 11:27 AM CDT) Anatomical Region Laterality Modality Body N/A Radio Fluoroscop y 08/05/2024 2:11 PM CDT Narrative 08/05/2024 2:18 PM CDT EXAM DESCRIPTION: FL ESOPHAGRAM BARIUM SWALLOW TO STOMACH, DOUBLE CONTRAST REASON FOR STUDY: dysphagia Trouble swallowing and feeling food get stuck. Drinks water after eating to clear throat Esophagus stretched 04/2024 Fl time 1.6 minutes Dose 36.0 mGy RADIATION DOSE: Dose: 1063.61 uGym2 Dose Area Product (DAP) TECHNIQUE: Under fluoroscopic guidance, patient ingested effervescent granules followed by thick and thin barium. COMPARISON: 07/09/2021 FINDINGS: ESOPHAGEAL MOTILITY: There are scattered mild tertiary contractions noted with a subtle mild corkscrew appearance of the esophagus, which raises the concern for mild presbyesophagus. There is no definite evidence of cervical spasm. ESOPHAGEAL MUCOSA: There is no definite evidence of a dominant esophageal stricture or mass. There is a subtle focal outpouching noted involving the posterior aspect of the upper esophagus measuring 0.3 cm which was visualized when the patient was in the prone position, and was not definitely seen on the upright sequences, and therefore findings may be artifactual, however a small diverticulum/pseudodiverticulum cannot be entirely excluded. GASTRO-ESOPHAGEAL JUNCTION: There is a small hiatal hernia. There was no significant reflux elicited with provocative maneuvers. NON-GI TRACT STRUCTURES: No significant finding. OTHER: No other significant finding. IMPRESSION: 1. No definite evidence of a dominant esophageal stricture or mass. 2. Subtle focal outpouching involving the posterior aspect of the upper esophagus, which is only visualized when the patient was in the prone position, and not definitely seen on the upright sequences, and therefore findings may be artifactual, however a small diverticulum/pseudo diverticulum can not be entirely excluded. Given patient's symptoms, further evaluation with endoscopy is recommended as clinically indicated. THIS IS AN ELECTRONICALLY VERIFIED FINAL REPORT 08/05/2024 2:18 PM - Electronically signed by Julio Cesar Enciso D.O. PS: PS Report ID: [id number] Reading Location: [place] [address] Procedure Note Julio Cesar Enciso, - 08/05/2024 EXAM DESCRIPTION: FL ESOPHAGRAM BARIUM SWALLOW TO STOMACH, DOUBLECONTRAST REASON FOR STUDY: dysphagia Trouble swallowing and feeling food get stuck. Drinks water after eatingto clear throat Esophagus stretched 04/2024 Fl time 1.6 minutes Dose36.0 mGy RADIATION DOSE: Dose: 1063.61 uGym2 Dose Area Product (DAP) TECHNIQUE: Under fluoroscopic guidance, patient ingested effervescentgranules followed by thick and thin barium. COMPARISON: 07/09/2021 FINDINGS: ESOPHAGEAL MOTILITY: There are scattered mild tertiary contractionsnoted with a subtle mild corkscrew appearance of the esophagus, which raises the concern for mild presbyesophagus. There is no definite evidence ofcervical spasm. ESOPHAGEAL MUCOSA: There is no definite evidence of a dominantesophageal stricture or mass. There is a subtle focal outpouching noted involvingthe posterior aspect of the upper esophagus measuring 0.3 cm which wasvisualized when the patient was in the prone position, and was not definitely seen onthe upright sequences, and therefore findings may be artifactual, however asmall diverticulum/pseudodiverticulum cannot be entirely excluded. GASTRO-ESOPHAGEAL JUNCTION: There is a small hiatal hernia. There wasno significant reflux elicited with provocative maneuvers. NON-GI TRACT STRUCTURES: No significant finding. OTHER: No other significant finding. IMPRESSION: 1. No definite evidence of a dominant esophageal stricture or mass. 2. Subtle focal outpouching involving the posterior aspect of the upper esophagus, which is only visualized when the patient was in the prone position, and not definitely seen on the upright sequences, and therefore findings may be artifactual, however a small diverticulum/pseudodiverticulum can not be entirely excluded. Given patient's symptoms, furtherevaluation with endoscopy is recommended as clinically indicated. THIS IS AN ELECTRONICALLY VERIFIED FINAL REPORT 08/05/2024 2:18 PM - Electronically signed by Julio Cesar Enciso D.O. PS: PS Report ID: [id number] Reading Location: [place] [address] us Janet LIMA IMG FLUOROSCOPY PROCEDUR ES Final Result * (ABNORMAL) H. pylori breath test (08/02/2024 12:55 PM CDT) H. pylori, breath test Positive( A) Negative Song ref Lab Comment: Result indicates the presence of active Helicobacter pylori infection. Test Performed by: [facility] - [address] [address] [place]: Aliya Whyte Ph.D.; CLIA# [id number] Breath 08/02/2024 12:5 5 PM CDT 08/02/2024 12:58 PM CDT us Janet LIMA LAB BODY FLUIDS AND STOO LS ORDERABLES Final Result JCARLOS ROSS ([facility]) 1 [facility] [place] [address] Covert ref Lab * [place] REMOVAL IMPACTED CERUMEN INSTRUMENTATION UNILAT, [place] REMOVAL IMPACTED CERUMEN IRRIGATION/LVG UNILAT (07/13/2024 3:30 PM CDT) Narrative Shena Marie NP - 07/13/2024 3:30 PM CDT Shena Marie NP 07/13/2024 5:01 PM Ear Cerumen Removal Performed by: Shena Marie NP Authorized by: Shena Marie NP Consent Given by: Patient Verbal consent obtained: Yes Location: R ear R ear cerumen impacted?: Yes R ear method of removal: Irrigation R ear instrumentation: Curette R ear magnification: Otoscope Inspection: TM intact Hearing quality: Improved Patient tolerance: Patient tolerated the procedure well with no immediate complications us Shena Marie NP IN CLINIC/BEDSIDE ORDER DIANA Final Result * eGFR (06/29/2024 9:35 AM CDT) eGFR 85 >=60 mL/min/1. 73 m2 Comment: Interpretive Data Reference Interval Normal >/= 90 mL/min/1.73m2 Mildly decreased* 60 - 89 mL/min/1.73m2 Mildly to moderately decreased 45 - 59 mL/min/1.73m2 Moderately to severely decreased 30 - 44 mL/min/1.73m2 Severely decreased 15 - 29 mL/min/1.73m2 Kidney Failure < 15 mL/min/1.73m2 *Relative to young adult level Estimated glomerular filtration rate is determined by the 2020 CKD-EPI equation recommended by the National Kidney Foundation (A Unifying Approach to GFR Estimation: Recommendations of the NKF-ASK Task Force on Reassessing the Inclusion of Race in Diagnosing Kidney Disease, JASN 2020). The CKD-EPI equation should not be used for patients with unstable renal function and has not been validated in children and those over 70. Current interpretive data was last reviewed 2021. Blood 06/29/2024 9:35 AM CDT 06/29/2024 1:22 PM CDT us Shena Marie NP LAB BLOOD ORDERABLES Fi nal Result [facility] ([place]) 1 [facility] [place] [address] * (ABNORMAL) Differential, auto (06/29/2024 9:35 AM CDT) Neutrophil abs 7.57(H) 1.50 - 6.50 K/cumm Imm gran abs 0.04 0.00 - 0.10 K/cumm [facility] ([place]) Lymphocyte abs 2.50 0.80 - 3.30 K/cumm [facility] ([place]) Monocyte abs 1.04(H) 0.20 - 0.80 K/cumm [facility] ([place]) Eosinophil abs 0.42 0.00 - 0.50 K/cumm [facility] ([place]) Basophil abs 0.12(H) 0.00 - 0.10 K/cumm [facility] ([place]) Neutrophil pct 64.8 % [facility] ([place]) Comment: Interpretive Data Percent cell count reference ranges are not reported, since discordance with absolute values may lead to misinterpretation of CBC data. Current Interpretive Data was last revised on 2017. Imm gran pct 0.3 % [facility] ([place]) Comment: Interpretive Data Percent cell count reference ranges are not reported, since discordance with absolute values may lead to misinterpretation of CBC data. Current Interpretive Data was last revised on 2017. Lymphocyte pct 21.4 % [facility] ([place]) Comment: Interpretive Data Percent cell count reference ranges are not reported, since discordance with absolute values may lead to misinterpretation of CBC data. Current Interpretive Data was last revised on 2017. Monocyte pct 8.9 % [facility] ([place]) Comment: Interpretive Data Percent cell count reference ranges are not reported, since discordance with absolute values may lead to misinterpretation of CBC data. Current Interpretive Data was last revised on 2017. Eosinophil pct 3.6 % [facility] ([place]) Comment: Interpretive Data Percent cell count reference ranges are not reported, since discordance with absolute values may lead to misinterpretation of CBC data. Current Interpretive Data was last revised on 2017. Basophil pct 1.0 % [facility] ([place]) Comment: Interpretive Data Percent cell count reference ranges are not reported, since discordance with absolute values may lead to misinterpretation of CBC data. Current Interpretive Data was last revised on 2017. Blood 06/29/2024 9:35 AM CDT 06/29/2024 1:22 PM CDT Shena Marie NP LAB BLOOD ORDERABLES nal Result [facility] ([place] 1 [facility] [place] [address] * (ABNORMAL) CBC with auto differential (06/29/2024 9:35 AM CDT) WBC 11.69(H) 3.80 - 9.90 K/cumm Hgb 11.8(L) 11.9 - 15.5 g/dL [facility] ([place]) Hct 37.8 35.6 - 45.5 % [facility] ([place]) Plt 517(H) 150 - 400 K/cumm [facility] ([place]) MPV 10.3 9.1 - 12.3 fL [facility] ([place]) RBC 4.07 3.90 - 5.20 M/cumm [facility] ([place]) MCV 92.9 81.3 - 96.4 fL [facility] ([place]) MCH 29.0 27.1 - 33.3 pg [facility] ([place]) MCHC 31.2(L) 32.3 - 35.7 g/dL [facility] ([place]) RDW CV 14.3 11.1 - 14.9 % [facility] ([place]) RDW SD 48.1 35.7 - 48.1 fL [facility] ([place]) NRBC abs 0.00 0.00 - 0.01 K/cumm [facility] ([place]) Blood 06/29/2024 9:35 AM CDT 06/29/2024 1:22 PM CDT Shena Marie NP LAB BLOOD ORDERABLES Fi nal Result Performing Organization Address City/[facility]/ZIP Co de Phone Number [facility] ([place]) 1 [facility] [place] [address] * TSH (06/29/2024 9:35 AM CDT) Thyroid Stimulating Hormone 3.66 0.30 - 4.20 mcIUnit/mL Blood 06/29/2024 9:35 AM CDT 06/29/2024 1:22 PM CDT Shena Marie NP LAB BLOOD ORDERABLES Fi nal Result Performing Organization Address [facility] Co de Phone Number [facility] ([place] [address] [facility] [place] [address] * T4, free (06/29/2024 9:35 AM CDT) Free T4 0.99 0.90 - 1.70 ng/dL Blood 06/29/2024 9:35 AM CDT 06/29/2024 1:22 PM CDT Shena Marie NP LAB BLOOD ORDERABLES Fi nal Result Performing Organization Address City/[facility]/ZIP Co de Phone Number [facility] ([place] 1 [facility] [place] [address] * Lipid panel (06/29/2024 9:35 AM CDT) Cholesterol 159 30 - 199 mg/dL Comment: Interpretive Data Ages < or = 19 years Acceptable: <170 mg/dL Borderline high: 170-199 mg/dL High: >or= 200 mg/dL Ages > or = 20 years Desirable: <200 mg/dL Borderline high: 200-239 mg/dL High: >or= 240 mg/dL Literature References: 1. Expert Panel on Integrated Guidelines for Cardiovascular Health and Risk Reduction in Children and Adolescents. Pediatrics 2011;128:S213 2. NCEP Expert Panel. Circulation 2004;110:227 Current Interpretive Data was last revised on 2017. Triglycerides 69 <=149 mg/dL [facility] ([place]) Comment: Interpretive Data Ages < or = 9 years Acceptable: <75 mg/dL Borderline high: 75-99 mg/dL High: >or= 100 mg/dL Ages 10 to 20 years Acceptable: <90 mg/dL Borderline high: 90-129 mg/dL High: >or= 130 mg/dL Ages > or = 20 years Desirable: <150 mg/dL Borderline high: 150-199 mg/dL High: 200-499 mg/dL Very high: >or= 499 mg/dL Literature References: 1. Expert Panel on Integrated Guidelines for Cardiovascular Health and Risk Reduction in Children and Adolescents. Pediatrics 2011;128:S213 2. NCEP Expert Panel. Circulation 2004;110:227 Current Interpretive Data was last revised on 2017. HDL 67 >=40 mg/dL [facility] ([place]) Comment: Interpretive Data Ages < or = 19 years Acceptable: >45 mg/dL Borderline low: 40-45 mg/dL Low: <40 mg/dL Ages > or = 20 years Desirable: >or= 60 mg/dL Low: <40 mg/dL Literature References: 1. Expert Panel on Integrated Guidelines for Cardiovascular Health and Risk Reduction in Children and Adolescents. Pediatrics 2011;128:S213 2. NCEP Expert Panel. Circulation 2004;110:227 Current Interpretive Data was last revised on 2017. LDL, calculated 79 <=129 mg/dL [facility] ([place]) Comment: Interpretive Data Ages < or = 19 years Acceptable: <110 mg/dL Borderline high: 110-129 mg/dL High: >or= 130 mg/dL Ages > or = 20 years Optimal: <100 mg/dL Near optimal: 100-129 mg/dL Borderline high: 130-159 mg/dL High: >160 mg/dL Calculated using the Camejo LDL-C estimating equation. This equation was implemented on 2023. Prior to this date LDL-C was estimated using the Friedewald equation. Literature References: 1. Expert Panel on Integrated Guidelines for Cardiovascular Health and Risk Reduction in Children and Adolescents. Pediatrics 2011;128:S213 2. NCEP Expert Panel. Circulation 2004;110:227 3. Bashir M et al. ANA Cardiol. 2019July 28;5(5):540-548. doi: 10.1001/jamacardio.2020.0013 Current Interpretive Data was last revised on 2023. Non-HDL Cholesterol 92 mg/dL [facility] ([place]) Comment: Interpretive Data Ages < or = 19 years Acceptable: <120 mg/dL Borderline high: 120-144 mg/dL High: >145 mg/dL Ages > or = 20 years When triglycerides are >200 mg/dL, Non-HDL cholesterol is a secondary target of therapy with treatment goals that are 30 mg/dL greater than the LDL cholesterol target. Literature References: 1. Expert Panel on Integrated Guidelines for Cardiovascular Health and Risk Reduction in Children and Adolescents. Pediatrics 2011;128:S213 2. NCEP Expert Panel. Circulation 2004;110:227 Current Interpretive Data was last revised on 2017. Chol/HDL ratio 2 [facility] ([place]) Blood 06/29/2024 9:35 AM CDT 06/29/2024 1:22 PM CDT Narrative [facility] ([place]) - 06/29/2024 1:58 PM CDT Has the patient been fasting for 8 hours or more?->Yes Shena Marie NP LAB BLOOD ORDERABLES nal Result [facility] ([place]) 1 [facility] [place] [address] * (ABNORMAL) Comprehensive metabolic panel (06/29/2024 9:35 AM CDT) Sodium 137 135 - 145 mmol/L Potassium, pl 4.6 3.3 - 4.9 mmol/L [facility] ([place]) Chloride 99 97 - 110 mmol/L [facility] ([place]) CO2 25 22 - 32 mmol/L [facility] ([place]) Anion gap 13 2 - 15 mmol/L [facility] ([place]) BUN 7 6 - 25 mg/dL [facility] ([place]) Creatinine 0.76 0.60 - 1.10 mg/dL [facility] ([place]) Glucose 62(L) 70 - 199 mg/dL [facility] ([place]) Comment: Interpretive Data Fasting glucose >/= 126 mg/dl is diagnostic for diabetes. Fasting is defined as no caloric intake for at least 8 hours. Fasting glucose between 100 mg/dl to 125 mg/dl is diagnostic of prediabetes. In a patient with classic symptoms of hyperglycemia or hyperglycemic crisis, a random glucose >/= 200 mg/dl is diagnostic for diabetes. In the absence of unequivocal hyperglycemia, results should be confirmed by repeat testing. The classification and Diagnosis of Diabetes Diabetes Care 2021; 46: S19-S40. Current interpretive data was last revised 2022. Calcium 9.2 8.5 - 10.3 mg/dL [facility] ([place]) Bilirubin, total 0.3 0.1 - 1.2 mg/dL [facility] ([place]) Protein, pl 7.5 6.5 - 8.5 g/dL [facility] ([place]) Albumin 4.0 3.5 - 5.0 g/dL [facility] ([place]) Alk phos 75 40 - 130 Units/L [facility] ([place]) ALT 8 7 - 45 Units/L [facility] ([place]) AST 25 10 - 45 Units/L [facility] ([place]) Blood 06/29/2024 9:35 AM CDT 06/29/2024 1:22 PM CDT Shena Marie NP LAB BLOOD ORDERABLES Fi nal Result [facility] ([place]) 1 [facility] Department of Laboratories [place], [place] [id number] * Dexa Axial Skeleton Bone Density 1 or 2 Site (09/03/2022 7:27 AM CDT) Anatomical Region Laterality Modality Body N/A Other 09/04/2022 12:4 9 AM CDT Narrative 09/04/2022 12:50 AM CDT EXAM DESCRIPTION: DEXA AXIAL SKELETON BONE DENSITY 1 OR MORE SITES REASON FOR STUDY: 67 y/o year old F with given history of screening. Postmenopausal Installation & Maintenance Executive/Model: HoloSkyrider Discovery SL (S/N [id number]) CLINICAL INFORMATION: Current height: 61 inches Maximum height: 62 inches Weight: 116 pounds Risk factors: Postmenopausal, cancer COMPARISON: 10/10/2019 FINDINGS: AP LUMBAR SPINE L1-L4: Total BMD is 0.782 g/cm2 T-score is -2.4 Dissimilar scan types or analysis methods precludes assessment for calculating a significant change. LEFT HIP: Total BMD is 0.651 g/cm2 T-score is -2.4 Femoral neck BMD is 0.540 g/cm2 T-score is -2.8 FRAX: FRAX not reported due to T-scores of hip, femoral neck and/or spine being at or below -2.5 (Osteoporosis). IMPRESSION: Osteoporosis. REFERENCE: Bone mineral density: Normal (T-score above or = -1.0) Low bone mass (T-score between -1.0 and -2.5) replaces the previously used term osteopenia Osteoporosis (T-score = or below -2.5) Medical evaluation for secondary causes of low bone mineral density may be appropriate. FRAX is a World Health Organization validated fracture risk assessment tool that calculates a person's 10 year probability of a major osteoporosis related fracture and hip fracture. According to the National Osteoporosis Foundation guidelines, postmenopausal women and men age 50 or older with low bone mass and a 10 year probability of a major osteoporosis related fracture = or greater than 20% or a 10 year probability of a hip fracture = or greater than 3% should be considered for treatment. For further information, including treatment recommendations, please refer to the 2019 ISCD Official Positions (http://www.iscd.org) and the NOF's Clinician's Guide to Prevention and Treatment of Osteoporosis (http://www.nof.org/professionals/clinical-guidelines) THIS IS AN ELECTRONICALLY VERIFIED FINAL REPORT 09/04/2022 12:50 AM - Electronically signed by Nolan Simental M.D. MF: [email or web address] Report ID: [id number] Reading Location: [place] [address] Procedure Note Nolan Simental MD - 09/04/2022 EXAM DESCRIPTION: DEXA AXIAL SKELETON BONE DENSITY 1 OR MORE SITES REASON FOR STUDY: 67 y/o year old F with given history of screening. Postmenopausal Installation & Maintenance Executive/Model: [employer] SL (S/N [id number]) CLINICAL INFORMATION: Current height: 61 inches Maximum height: 62 inches Weight: 116 pounds Risk factors: Postmenopausal, cancer COMPARISON: 10/10/2019 FINDINGS: AP LUMBAR SPINE L1-L4: Total BMD is 0.782 g/cm2 T-score is -2.4 Dissimilar scan types or analysis methods precludes assessment for calculating a significant change. LEFT HIP: Total BMD is 0.651 g/cm2 T-score is -2.4 Femoral neck BMD is 0.540 g/cm2 T-score is -2.8 FRAX: FRAX not reported due to T-scores of hip, femoral neck and/or spine beingat or below -2.5 (Osteoporosis). IMPRESSION: Osteoporosis. REFERENCE: Bone mineral density: Normal (T-score above or = -1.0) Low bone mass (T-score between -1.0 and -2.5) replaces thepreviously used term osteopenia Osteoporosis (T-score = or below -2.5) Medical evaluation for secondary causes of low bone mineral density may be appropriate. FRAX is a World Health Organization validated fracture risk assessmenttool that calculates a person's 10 year probability of a major osteoporosisrelated fracture and hip fracture. According to the National OsteoporosisFoundation guidelines, postmenopausal women and men age 50 or older with low bonemass and a 10 year probability of a major osteoporosis related fracture = or greater than 20% or a 10 year probability of a hip fracture = or greaterthan 3% should be considered for treatment. For further information, including treatment recommendations, please referto the 2019 ISCD Official Positions (http://www.iscd.org) and the NOF's Clinician's Guide to Prevention and Treatment of Osteoporosis (http://www.nof.org/professionals/clinical-guidelines) THIS IS AN ELECTRONICALLY VERIFIED FINAL REPORT 09/04/2022 12:50 AM - Electronically signed by Nolan Simental M.D. MF: [email or web address] Report ID: [id number] Reading Location: [id number] Darek Frias MD IMG DXA PROCEDURES Final Res ult * Hepatitis C Antibody Reflex Hepatitis C RNA Quantitative PCR (08/18/2016 8:45 AM CDT) Hep C Ab Negative Negative [facility] Blood specimen (specimen) 08/18/2016 8:45 AM CDT 08/18/2016 10:24 AM CDT Darek Frias MD LAB MICROBIOLOGY - GENERAL O RDERABLES Final Result [facility] [address] Department [place] [address] * MAMMOGRAPHY (05/02/2015) Mammogram Normal Historical Provider HEALTH MAINTENANCE Final Result * COLONOSCOPY IMAGES (03/28/2014) Anatomical Region Laterality Modality Other Narrative 03/28/2014 Ordered by an unspecified provider. Historical Provider GI PROCEDURE ORDERABLES F inal Result from Last 3 Months or Most Recently Relevant to Health Maintenance Insurance [facility] ACCESS CHOICE MEDICARE [facility] AETNA MEDICARE GOLD Advance Directives For more information, please contact: [phone] Documents on File Type Date Recorded Patient Woodworker Expl anation Advance Directives and Marti shah Will 03/07/2024 8:41 AM Power of High School Librarian 03/01/2024 6:12 AM * Full Code (Latest Code Status on File) Date Activated Date Inactivated Comments 05/17/2024 7:56 AM 05/17/2024 2:00 PM * Full Code Date Activated Date Inactivated Comments 02/10/2022 8:21 AM 02/10/2022 2:22 PM * Full Code Date Activated Date Inactivated Comments 02/10/2022 8:21 AM 02/10/2022 8:21 AM Care Teams Carriage Feeder Relationship Specialty Start Date End Date Shena Marie NP [address] [facility] [address] [place] [address] PCP - General Family Medicine 05/30/24 Janet Foote PA [address] [place] [address] [address] [place] [address] Gastroenterology 12/30/23 [place] [address] [address] Consulting Physician Neurology 12/30/23 [place] [address] [facility] [address], [place] [address] Consulting Physician Cardiology 12/30/23 Dilma Alonzo MD [address] [facility] [place] [address] Hot Blaster Obstetrics and Gynecology 12/30/23 Elizabeth Patterson MD [address] [facility] [address] [place], [place] [id number] Consulting Physician Rheumatology 04/07/24 Jake Lo MD [address] [facility] [address] [place], [place] [id number] Consulting Physician Urology 04/07/24 Henna Ryder DPM [address] [address] Consulting Physician Foot and Ankle Surg 04/07/24
--- OUTSIDE RECORDS SUMMARY | 2024-09-08 12:54 | XMS_ITS | Encounter Summary ---
Author Organization [facility] Healthcare Address [address] [place] [address] Care Team Providers Care Head Of Marketing Name Role Phone No, Physician Primary Care Provider Janet Foote Unavailable [phone] Caroline COBB MD, Carlos M. Unavailable Sohail Clarke MD Unavailable [phone] Dilma Alonzo MD Unavailable [phone] Hasmukh Black MD Primary Care Provider Elizabeth Patterson MD Unavailable Jake Lo MD Unavailable [phone] Henna Ryder DPM Unavailable Shena Marie NP Primary Care Provider Encounter Details Date Type Department Care Team (Late st Contact Info) Description 10/27/2023 Orders Only [facility] Medical Group [facility] [address] [place] [id number] Scanning, Provider Social History Tobacco Use Types Packs/Day Years Used Date Smoking Tobacco: Former Cigarettes 0.5 15 0 05/11/1980 - 05/11/1995 Smokeless Tobacco: Never Comments:Smoking History Pac ks/day: 0.5 Cigarettes Alcohol Use Standard Drinks/Week Comments Yes 0 (1 standard drink = 0.6 oz pur e alcohol) AUDIT-C Answer Date Recorded Q1: How often do you have a drink containing alcohol? Never 04/10/2023 Q2: How many drinks containi ng alcohol do you have on a typical day when you are drinking? Patient does not drink Q3: How often do you have si x or more drinks on one occasion? Never 04/10/2023 PHQ-2 Answer Date Recorded PHQ-2 Total Score (If total score is 3 or more points, staff should administer the PHQ-9) 0 09/14/2023 Comments No Sex and Gender Information Value Date Recorded Sex Assigned at Not on file Legal Sex Female 4:23 PM HUMAN RESOURCES COMMUNICATIONS MANAGER Gender Identity Not on file Sexual Orientation Not on file documented as of this encounter Plan of Treatment Upcoming Encounters Date Type Department Care Team (Late st Contact Info) Description 10/06/2024 10:30 AM CDT Hospital Encounter [address] [address] Kalyan Grimes DO [address] [facility] [address] [place] [address] 10/06/2024 10:30 AM CDT - 10/06/2024 11:00 AM CDT Surgery [address] [address] Kalyan Grimes DO [address] [facility] [address] [place] [address] COLONOSCOPY Scheduled Procedures Name Priority Associated Diagnoses Date/Ti me COLONOSCOPY Encounter for screening colonoscopy 10/06/2024 10:30 AM CDT documented as of this encounter Procedures Procedure Name Priority Date/Time Associated Diagnosis Comments SCAN - RADIOLOGY/IMAGING 10/27/2023 documented in this encounter Results * SCAN - RADIOLOGY/IMAGING (10/27/2023) Anatomical Region Laterality Modality Other us Provider Scanning Final Result documented in this encounter Visit Diagnoses Not on filedocumented in this encounter Care Teams Head Of Marketing Relationship Specialty Start Date End Date No, Physician PCP - General 11/26/23 12/29/23 Hasmukh Black MD [address] [place] [address] PCP - General Family Medicine 12/30/23 05/29/24 Shena Marie, CHILD LIFE THERAPIST [address] [facility] [address] [place] [address] PCP - General Family Medicine 05/30/24 Janet Foote PA [address] [facility] [address] [place] [address] Gastroenterology 12/30/23 [place] [address] [facility] [address] [place] [address] Consulting Physician Neurology 12/30/23 [place] [address] [facility] [address] [place] [address] Consulting Physician Cardiology 12/30/23 Dilma Alonzo MD [address] [place] [address] Software Verification Engineer Obstetrics and Gynecology 12/30/23 Elizabeth Patterson MD [address] [place], [place] [id number] Consulting Physician Rheumatology 04/07/24 Jake Lo MD [address] [place] [address] Consulting Physician Urology 04/07/24 Henna Ryder, DPM [address] [address] Consulting Physician Foot and Ankle Surg 04/07/24 documented as of this encounter
--- OUTSIDE RECORDS SUMMARY | 2024-09-08 12:55 | XMS_ITS | Encounter Summary ---
Author Organization [facility] Address [address] [place] [address] Care Team Providers Care Sap Ppm Consultant Name Role Phone Darek Frias MD Primary Care Provider [phone] Eunice Velazquez MD Primary Care Provide r No, Physician Primary Care Provider [phone] Janet Foote Unavailable [phone] Caroline COBB MD, Haim Godinez Unavailable [phone] Sohail Clarke MD Unavailable [phone] Dilma Alonzo MD Unavailable [phone] Hasmukh Black MD Primary Care Provider Elizabeth Patterson MD Unavailable Jake Lo MD Unavailable [phone] Hnena Ryder DPM Unavailable Shena Marie NP Primary Care Provider Reason for Visit * Reason Onset Date Comments Scheduling Appointments 07/08/2021 Reminder call for modified swallow. No answer. Encounter Details Date Type Department Care Team (Late st Contact Info) Description 07/08/2021 Telephone [facility] [address] [address] Debora Fatima RT Scheduling Appointments (Reminder call for modified swallow. No answer. ) Social History Tobacco Use Types Packs/Day Years Used Date Smoking Tobacco: Former Cigarettes 0.5 15 0 05/11/1980 - 05/11/1995 Smokeless Tobacco: Never Comments:Smoking History Pac ks/day: 0.5 Cigarettes Alcohol Use Standard Drinks/Week Comments Yes 0 (1 standard drink = 0.6 oz pur e alcohol) PHQ-2 Answer Date Recorded PHQ-2 Total Score (If total score is 3 or more points, staff should administer the PHQ-9) 0 06/18/2021 Comments No Sex and Gender Information Value Date Recorded Sex Assigned at Not on file Legal Sex Female 4:23 PM MARKETING RESEARCH INTERN Gender Identity Not on file Sexual Orientation Not on file documented as of this encounter Plan of Treatment Upcoming Encounters Date Type Department Care Team (Late st Contact Info) Description 10/06/2024 10:30 AM CDT Hospital Encounter [address] [address] Kalyan Grimes DO [address] [facility] [address] [place] [id number] 10/06/2024 10:30 AM CDT - 10/06/2024 11:00 AM CDT Surgery [address] [address] Kalyan Grimes, [address] [facility] [address] [place] [id number] COLONOSCOPY Scheduled Procedures Name Priority Associated Diagnoses Date/Ti me COLONOSCOPY Encounter for screening colonoscopy 10/06/2024 10:30 AM CDT documented as of this encounter Visit Diagnoses Not on filedocumented in this encounter Additional Health Concerns Infection Onset Date Last Indicated Resolved Time COVID: Suspected 05/01/2023 05/01/2023 05/02/2023 3:05 AM MARKETING RESEARCH INTERN documented as of this encounter Care Teams Sap Ppm Consultant Relationship Specialty Start Date End Date Darek Frias MD PCP - General 06/27/16 08/31/23 Eunice Velazquez MD [address] [facility] [address] [place] [address] PCP - General Family Medicine 09/01/23 10/16/23 No, Physician PCP - General 11/26/23 12/29/23 Hasmukh Black MD [address] [place] [address] PCP - General Family Medicine 12/30/23 05/29/24 Shena Marie, ELECTRICAL MAINTENANCE SUPERVISOR [address] [facility] [address] [place] [address] PCP - General Family Medicine 05/30/24 Janet Foote PA [address] [facility] [address] [place] [address] Gastroenterology 12/30/23 [place] [address] [address] [facility] [address] [address] Consulting Physician Neurology 12/30/23 [place] [address] [address] [facility] [address], [place] [id number] Consulting Physician Cardiology 12/30/23 Dilma Alonzo MD [address] [place] [address] Diazo Technician Obstetrics and Gynecology 12/30/23 Elizabeth Patterson MD [address] [facility] [address] [place] [address] Consulting Physician Rheumatology 04/07/24 Jake Lo MD [address] [facility] [address] [place] [address] Consulting Physician Urology 04/07/24 Henna Ryder, GLORIA [address] [facility] [address] [place] [address] Consulting Physician Foot and Ankle Surg 04/07/24 documented as of this encounter
--- OUTSIDE RECORDS SUMMARY | 2024-09-08 12:55 | XMS_ITS | Encounter Summary ---
Author Organization [facility] Healthcare Address [address] [place] [address] Care Team Providers Care Regional Coordinator Name Role Phone Janet Foote Unavailable Caroline COBB MD, Haim Godinez Unavailable [phone] Sohail Clarke MD Unavailable [phone] Dilma Alonzo MD Unavailable Elizabeth Patterson MD Unavailable Jake Lo MD Unavailable [phone] Henna Ryder DPM Unavailable Shena Marie NP Primary Care Provider Encounter Details Date Type Department Care Team (Latest Contact Info) Description 08/12/2024 Results Follow-Up 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 Gender Identity Not on file Sexual Orientation Not on file documented as of this encounter Plan of Treatment Upcoming Encounters Date Type Department Care Team (Late st Contact Info) Description 10/06/2024 10:30 AM CDT Hospital Encounter [address] [address] Kalyan Grimes DO 4 [facility] [address] [place] [address] 10/06/2024 10:30 AM CDT - 10/06/2024 11:00 AM CDT Surgery [address] [address] Kalyan Grimes DO 4 [facility] [address] [place] [address] COLONOSCOPY Scheduled Procedures Name Priority Associated Diagnoses Date/Ti me COLONOSCOPY Encounter for screening colonoscopy 10/06/2024 10:30 AM CDT documented as of this encounter Visit Diagnoses Not on filedocumented in this encounter Care Teams Regional Coordinator Relationship Specialty Start Date End Date Shena Marie NP 2 [facility] [address] [place] [address] PCP - General Family Medicine 05/30/24 Janet Foote PA 4 [facility] [place] [address] Gastroenterology 12/30/23 [place] [address] [address] [facility] [address] [place] [address] Consulting Physician Neurology 12/30/23 [place] [address] [address] [facility] [address] [place] [address] Consulting Physician Cardiology 12/30/23 Dilma Alonzo MD 1 [facility] [place] [address] Sales Representative Door To Door Obstetrics and Gynecology 12/30/23 Elizabeth Patterson MD [address] [facility] [address] [place], [place] [id number] Consulting Physician Rheumatology 04/07/24 Jake Lo MD [address] [facility] [address] [place] [address] Consulting Physician Urology 04/07/24 Henna Ryder, DPM [address] [facility] [address] [place] [address] Consulting Physician Foot and Ankle Surg 04/07/24 documented as of this encounter
--- OUTSIDE RECORDS SUMMARY | 2024-09-08 12:55 | XMS_ITS | Referral Summary ---
Author Organization [facility] Address [address] [place] [address] Care Team Providers Care Art Framing Manager Name Role Phone Janet Foote Unavailable Caroline COBB MD, Carlos M. Unavailable Sohail Clarke MD Unavailable [phone] Dilma Alonzo MD Unavailable [phone] Elizabeth Patterson MD Unavailable Jake Lo MD Unavailable [phone] Henna Ryder DPM Unavailable [phone] Shena Marie NP Primary Care Provider Encounters Date Type Department Care Team Description 08/30/2024 Telephone [facility] Gastroenterology at [address] [place] [address] Janet Foote PA 08/25/2024 Results Follow-Up [facility] Gastroenterology at [address] [place] [address] Janet Foote PA H. pylori breath test 08/24/2024 9:05 AM CDT Lab [facility] [address] [place] [address] Helicobacter pylori infection 08/12/2024 Results Follow-Up [facility] Gastroenterology at [address] [place] [address] Janet Foote PA FL Esophagram, Double Contrast 08/05/2024 10:51 AM CDT - 08/05/2024 11:59 PM CDT Hospital Encounter [facility] [address] [place] [address] [facility] Fluoro Esophageal dysphagia Discharge Disposition: Discharge to home or self care 08/03/2024 Results Follow-Up [facility] Gastroenterology at [address] [place] [address] Janet Foote PA H. pylori breath test 08/02/2024 12:30 PM CDT Lab [address] [address] Helicobacter pylori infection 08/01/2024 1:00 PM CDT Office Visit [facility] Gastroenterology at [address] [place] [address] Janet Foote PA Helicobacter pylori infection (Primary Dx); Constipation, unspecified constipation type; Epigastric pain; Nausea; Esophageal dysphagia; Hemorrhoids, unspecified hemorrhoid type 07/22/2024 ACO Clinical Pharmacist [address] [address] [facility] 07/15/2024 Orders Only [facility] Primary Care at [address] [address] Shena Marie NP Cyst of left ovary (Primary Dx); Urgency incontinence 07/13/2024 ACO Clinical Pharmacist [address] [address] [facility] 07/13/2024 Orders Only [facility] Primary Care at [address] [place] [address] Shena Marie NP Impacted cerumen of right ear (Primary Dx) 07/13/2024 Telephone [facility] Primary Care at [address] [address] Shena Marie, ELVIA Referral 07/13/2024 3:30 PM CDT Office Visit [facility] Primary Care at [address] [address] Shena Marie, ELVIA Primary hypertension (Primary Dx); Mixed hyperlipidemia; Acquired hypothyroidism; Impacted cerumen of right ear; Body mass index (BMI) of 19.0 to 19.9 in adult 07/11/2024 ACO Clinical Pharmacist [address] [facility] 07/01/2024 Results Follow-Up [facility] Primary Care at [address] [address] Shena Marie, ELVIA CBC with auto differential, Comprehensive metabolic panel, Lipid panel, Additional followed-up results: 4 06/29/2024 9:35 AM CDT Lab [address] Thrombocytosis; Primary hypertension; Mixed hyperlipidemia; Acquired hypothyroidism 06/21/2024 Orders Only [facility] Primary Care at [address] [address] Shena Marie NP Mixed hyperlipidemia (Primary Dx); Primary hypertension; Acquired hypothyroidism; Thrombocytosis 06/21/2024 8:30 AM CDT Clinical Support [facility] Primary Care at [address] [address] Age-related osteoporosis without current pathological fracture (Primary Dx) 06/16/2024 Orders Only [facility] Primary Care at [address] [address] Shena Marie NP Nausea (Primary Dx) 06/15/2024 Nurse Triage [facility] Primary Care at [address] [address] Shena Marie NP 06/15/2024 Telephone [facility] Primary Care at [address] [place] [address] Shena Marie NP Medical Question/Miscellaneou s from Last 3 Months Allergies Active Allergy Reactions Criticality Noted Date Comments Metronidazole Unknown Morphine Vomiting Low Penicillins Itching Low Sulfa (Sulfonamide Antibiotics) Itching Low Sulfanilamide Itching Low Medications latanoprost (XALATAN) 0.005 % ophthalmic solution instill 1 drop by ophthalmic route every day into affected eye(s) in the evening 0 0 05/08/19 17 Active rwvzsqcx-dvr-JJ-ly copen-lutein (CENTRUM SILVER) 0.4-300-250 mg-mcg-mcg tablet take [...] Neurology Assessment & Plan (04/07/2024 9:07 AM PARACHUTE MARKER): - chronic condition - follows with Neurology - on Gabapentn 600 mg TID - currently on Tramadol PRN per neurology - affects her ambulation/mobility - provided handicap placard Screen for colon cancer 04/07/2024 Assessment & Plan (04/07/2024 9:17 AM PARACHUTE MARKER): - colon cancer screening due - last colonoscopy done on 2013, repeat in 10 years, placed referral to GI Hematuria 02/11/2024 Urgency incontinence 02/11/2024 Overview (04/07/2024): Following with Urology Assessment & Plan (04/07/2024 9:12 AM PARACHUTE MARKER): - chronic condition, better controlled - has [...] 06/23/2022 Assessment & Plan (02/08/2023 10:40 PM PARACHUTE MARKER): Mild chronic and asymptomatic. Check yearly Assessment [...] Plan (06/13/2020 11:26 AM CDT): Try Claritin [id number]-[id number]. Anemia 12/23/2018 Assessment & Plan (02/08/2023 10:39 PM PARACHUTE MARKER): Repeat CBC and laboratory workup before next visit. Assessment & Plan (03/11/2022 11:46 AM PARACHUTE MARKER): Condition is stable. CBC ordered today. Assessment & Plan (06/18/2021 11:40 AM CDT): Mild chronic stable, previous lab workup unremarkable. Assessment & Plan (12/23/2018 2:03 PM CDT): Check iron studies, TSH, free T4, B12, folate, LDH, UA with microscopy and call back for results. Symptoms of anemia discussed at length which would prompt repeat visit if develops. Follow-up with her oncologist/industrial conveyor belt repairer as they direct. Acquired hypothyroidism 05/13/2018 Assessment & Plan (07/13/2024 3:44 PM CDT): Lab Results Component Value Date TSH 3.66 06/29/2024 -chronic, controlled -patient currently takes Synthroid 25 mcg daily -most recent TSH within normal range -recent lab work stable -continue current treatment plan Assessment & Plan (04/07/2024 9:02 AM PARACHUTE MARKER): Lab Results Component Value Date TSH 3.52 [...] plan Assessment & Plan (02/08/2023 10:39 PM PARACHUTE MARKER): Patient is asymptomatic on current dose of [...] year. Assessment & Plan (05/18/2019 6:09 PM PARACHUTE MARKER): She remains asymptomatic will check thyroid studies [...] plan Assessment & Plan (02/08/2023 10:40 PM PARACHUTE MARKER): Calcium, vitamin-D, weight-bearing exercise continue Prolia Assessment [...] 2021. Assessment & Plan (05/18/2019 6:10 PM PARACHUTE MARKER): Continue calcium, vitamin-D, weight-bearing exercise, risedronate and [...] p.r.n. Assessment & Plan (05/11/2017 6:13 PM PARACHUTE MARKER): Trial of Imitrex. Discuss further with her [...] fall prevention, proper nutrition, and suggested joining [facility] to accomplish most of these goals. Patient [...] longer needs mammograms bilateral mastectomy. Follow-up the ceiling insulation blower as they direct. We will see her back in 1 year for physical and fasting lab sooner if needed. Assessment & Plan (05/18/2019 6:12 PM PARACHUTE MARKER): Flu shot each December. Tetanus booster every [...] needed. Assessment & Plan (05/11/2017 6:14 PM PARACHUTE MARKER): Flu shot each December. Tetanus booster every 10 years. Colonoscopy due February 2024. Declining mammogram status post bilateral mastectomies. We will see her back in 1 year with fasting lab sooner if needed. Coronary artery disease invo lving chehalis coronary artery of chehalis heart without angina pectoris 08/26/2016 Assessment & Plan (02/08/2023 10:39 PM PARACHUTE MARKER): Continue current medication regimen follow up with residential air sealing technician as they direct Assessment & Plan (06/23/2022 9:57 AM CDT): Continue current medication regimen follow up with residential air sealing technician as they direct. Assessment & Plan (03/11/2022 11:48 AM PARACHUTE MARKER): -condition is stable -continue seeing Dr. Clarke cardiology -please contact Dr. Clarke's office and ask him how long the aspirin 81 mg should be held prior to cataract surgery. Assessment & Plan (06/18/2021 11:39 AM CDT): Continue current medication regimen follow up with residential air sealing technician as they direct Assessment & Plan (06/13/2020 11:26 AM CDT): Continue current medication regimen and follow up with residential air sealing technician as they direct. Assessment & Plan (05/18/2019 6:10 PM PARACHUTE MARKER): Continue current medication regimen and follow up with residential air sealing technician as they direct. Assessment & Plan (06/21/2018 6:26 PM CDT): Continue rosuvastatin, metoprolol, isosorbide mononitrate, aspirin and follow up with residential air sealing technician as they direct. Assessment & Plan (05/11/2017 6:13 PM PARACHUTE MARKER): Continue aspirin, metoprolol, rosuvastatin, imdur Glaucoma 05/08/2016 Overview (04/07/2024): Follows with Ophthalmology Assessment & Plan (05/11/2017 6:14 PM PARACHUTE MARKER): Follow-up with her advertising operations manager as they direct. Systemic lupus erythematosus 05/08/2016 Overview (04/07/2024): Follows with Rheumathology Assessment & Plan (12/31/2023 6:08 AM CDT): -chronic, stable -follows with Rheumatology -currently takes Plaquenil 200 mg daily Continue current treatment plan with specialist Assessment & Plan (02/08/2023 10:41 PM PARACHUTE MARKER): Stable on Plaquenil and should follow up with digital imaging technician as they direct Assessment & Plan (06/23/2022 9:55 AM CDT): Well controlled on Plaquenil and follow-up with digital imaging technician as they direct. Assessment & Plan (06/18/2021 11:38 AM CDT): Well controlled on her Plaquenil and should follow-up with digital imaging technician as they direct. Assessment & Plan (06/13/2020 11:25 AM CDT): Well controlled on her Plaquenil and should follow-up with digital imaging technician as they direct. Assessment & Plan (05/18/2019 6:09 PM PARACHUTE MARKER): Continue her Plaquenil and follow up with her digital imaging technician as they direct. Assessment & Plan (06/21/2018 6:26 PM CDT): Continue Plaquenil and follow up with her digital imaging technician as they direct. Assessment & Plan (05/11/2017 6:12 PM PARACHUTE MARKER): Continue Plaquenil and follow up with her digital imaging technician as they direct. Dupuytren's contracture 01/09/2015 Assessment & Plan (06/13/2020 11:27 AM CDT): Referral to plastic surgery. Malignant neoplasm of breast 04/21/2014 Overview (05/11/2017): L 1997 s/pmastectomy; R 2004 mastectomy and chemo Assessment & Plan (05/18/2019 6:11 PM PARACHUTE MARKER): Patient has been discharged by her oncologist. No need for mammograms considering bilateral mastectomy. Assessment & Plan (06/21/2018 6:27 PM CDT): Follow-up with her oncologist as they direct. Yearly mammograms recommended. Assessment & Plan (05/11/2017 6:13 PM PARACHUTE MARKER): Follow-up with her oncologist as they direct. Neurofibromatosis 04/21/2014 Assessment & Plan (06/23/2022 9:57 AM CDT): No current complaints and continue observation. Assessment & Plan (06/18/2021 11:39 AM CDT): No current complaints and continue observation. Assessment & Plan (06/13/2020 11:26 AM CDT): No current complaints and continue observation. Assessment & Plan (05/18/2019 6:11 PM PARACHUTE MARKER): Continue observation for now. Assessment & Plan (06/21/2018 6:27 PM CDT): Continue observation for now. Assessment & Plan (05/11/2017 6:14 PM PARACHUTE MARKER): Continue observation for now. Hidradenitis suppurativa 08/13/2013 Assessment & Plan (06/18/2021 11:37 AM CDT): Well controlled on minocycline Assessment & Plan (05/18/2019 6:10 PM PARACHUTE MARKER): Well controlled on minocycline. Assessment & Plan (06/21/2018 6:25 PM CDT): Continue minocycline. Assessment & Plan (05/11/2017 6:09 PM PARACHUTE MARKER): Continue minocycline with good success. Hemorrhoids 08/13/2013 [...] plan Assessment & Plan (04/07/2024 9:03 AM PARACHUTE MARKER): BP Readings from Last 3 Encounters: 04/07/24 [...] hypertension. Assessment & Plan (02/08/2023 10:40 PM PARACHUTE MARKER): Blood pressure well controlled on metoprolol Assessment & Plan (06/23/2022 9:56 AM CDT): Well controlled on her metoprolol. Assessment & Plan (03/11/2022 11:47 AM PARACHUTE MARKER): HPI: Condition is stable A&P: Discussed/ordered labs, [...] recommended. Assessment & Plan (05/18/2019 6:10 PM PARACHUTE MARKER): Well controlled on the current regimen. Avoidance of salt, proper body weight, and routine exercise recommended. Assessment & Plan (06/21/2018 6:25 PM CDT): Well controlled on the current regimen. Avoidance of salt, proper body weight, and routine exercise recommended. Assessment & Plan (05/11/2017 6:12 PM PARACHUTE MARKER): Well controlled on the current regimen. Avoidance of salt, proper body weight, and routine exercise recommended. Mixed hyperlipidemia 11/05/2012 Assessment & Plan (07/13/2024 3:44 PM CDT): -chronic, controlled -currently takes rosuvastatin 10 mg -Discussed importance of well-balanced diet -recent lab values stable -refill of medication provided -continue current treatment plan Assessment & Plan (04/07/2024 9:02 AM PARACHUTE MARKER): -chronic, stable -currently takes rosuvastatin 10 mg [...] plan Assessment & Plan (02/08/2023 10:39 PM PARACHUTE MARKER): Well controlled on current therapy and will [...] months. Assessment & Plan (05/18/2019 6:10 PM PARACHUTE MARKER): Well controlled on current therapy and will check a lipid panel and LFTs in 6 months. Assessment & Plan (06/21/2018 6:25 PM CDT): Well controlled on current therapy and will check a lipid panel and LFTs in 12 months. Assessment & Plan (05/11/2017 6:10 PM PARACHUTE MARKER): Well controlled on current therapy and will check a lipid panel and LFTs in 12 months. Resolved Problems Problem Noted Date Diagnosed Date Resolved Date Acute bronchitis 05/01/2023 12/29/2023 Assessment & Plan (05/24/2023 2:51 PM PARACHUTE MARKER): Azithromycin Tessalon Perles and call back if no improvement. Muscle strain 05/01/2023 04/07/2024 Assessment & Plan (05/24/2023 2:51 PM PARACHUTE MARKER): Stretching exercises demonstrated. Avoid aggravating activities. Low-dose anti-inflammatories and call back if no improvement for physical therapy evaluation. H. pylori infection 06/23/2022 12/29/19 Assessment & Plan (06/23/2022 9:39 AM CDT): F/u with GI as they direct. Preop examination 05/15/2022 05/01/2023 Assessment & Plan (05/15/2022 9:29 AM PARACHUTE MARKER): She understands that no procedure is risk-free [...] 04/07/2024 Assessment & Plan (05/15/2022 9:29 AM PARACHUTE MARKER): She will be going For left cataract extraction 05/30/2022 Assessment & Plan (03/11/2022 11:48 AM PARACHUTE MARKER): Patient is scheduled for right cataract surgery [...] 04/07/2024 Assessment & Plan (02/17/2020 3:42 PM PARACHUTE MARKER): X-rays of her right hip and knee [...] Hypercholesterolemia Assessment & Plan (05/11/2017 6:12 PM PARACHUTE MARKER): Well controlled on current therapy and will check a lipid panel and LFTs in 12 months. Thumb pain 01/29/2015 04/07/2024 Shoulder pain 01/08/2015 04/07/2024 Overview (07/05/2016): Shoulder pain Cough 11/10/2013 05/11/2017 Overview (07/05/2016): Cough Iron deficiency anemia 02/07/201105/11 Overview (07/03/2016): Iron deficiency anemia Immunizations Immunization Administration Dates Next Due Influenza, [...] 05/08/2016,11/05/2012 ZOSTER LIVE 02/07/2015 ZOSTER Recombinant 03/15/2019,01/13/2019 Social History Tobacco Use Types Packs/Day Years [...] on file Legal Sex Female 4:23 PM PARACHUTE MARKER Gender Identity Not on file Sexual Orientation Not on file Last Filed Vital Signs Vital Sign Reading [...] Description 10/06/2024 10:30 AM CDT Hospital Encounter [address] [address] Kalyan Grimes DO [address] [facility] [address] [place] [address] 10/06/2024 10:30 AM CDT - 10/06/2024 11:00 AM CDT Surgery [address] [address] Kalyan Grimes DO [address] [facility] [place] [address] COLONOSCOPY Scheduled Procedures Name Priority Associated Diagnoses Date/Ti me COLONOSCOPY Encounter for screening colonoscopy 10/06/2024 10:30 AM CDT Medical Devices Implanted Type Area Olive Grader Device Identifier Shelf Expiration Date Model / Serial / Lot Medtronic [employer] Kit Lead Neurostimulator Urinary Control Sacral Test Interstim [id number] - [id number] Implanted:Qty: 1 on 03/01/2024 by Jake oL MD at [facility] N/A: Back [employer] [id number] / / [id number] [employer] Lead Neurostimulator Urinary Control Sacral Test Interstim [id number] - [id number] Implanted:Qty: 1 on 03/01/2024 by Jake Lo MD at [facility] N/A: Back [employer] [id number] / / [id number] Med[employer]onic [employer] Envelope Absrb 2.7x2.5in Antibacterial Tyrx Medium Strl [id number] - [id number] Implanted:Qty: 1 on 03/15/2024 by Jake Lo MD at [facility] N/A: Buttocks Med[employer] Inc 11/06/2024 [id number] / / [id number] Med[employer]onic [employer] Kit Lead Neurostimulator Percutaneous 4.32mm Spacing Interstim Surescan 28cm [id number] - [id number] Implanted:Qty: 1 on 03/15/2024 by Jake Lo MD at [facility] N/A: Buttocks [employer] Inc 10/18/2025 [id number] / / [id number] Medtronic Inc Generator Neurostimulator Bowel Bladder Recharge Free Interstim X [id number] - [id number] - [id number] Implanted:Qty: 1 on 03/15/2024 by Jake Lo MD at [facility] [employer] Inc 07/11/2025 [id number] / [id number] H / Procedures Procedure Name Priority Date/Time Associated Diagnosis Comments H. PYLORI BREATH TEST Routine 08/24/2024 9:26 AM CDT Helicobacter pylori infection FL ESOPHAGRAM, DOUBLE CONTRAST Schedule Routine, Read Routine (OP Routine) 08/05/2024 11:27 AM CDT Esophageal dysphagia H. PYLORI BREATH TEST Routine 08/02/2024 12:55 PM CDT Helicobacter pylori infection NC REMOVAL IMPACTED CERUMEN IRRIGATION/LVG UNILAT Routine 07/13/2024 3:30 PM CDT Impacted cerumen of right ear NC REMOVAL IMPACTED CERUMEN INSTRUMENTATION UNILAT Routine 07/13/2024 3:30 PM CDT Impacted cerumen of right ear EGFR Routine 06/29/2024 9:35 AM CDT Primary hypertension DIFFERENTIAL AUTO Routine 06/29/2024 9:3 5 AM CDT Thrombocytosis T4, FREE Routine 06/29/2024 [...] CDT) H. pylori, breath test Negative Negative [place] ref Lab Comment: Result indicates the absence of current Helicobacter pylori infection. Test Performed by: [facility] [address] [place] [address] Tire Repairman: Aliya Whyte Ph.D.; CLIA# [id number] Breath 08/24/2024 9:26 AM CDT 08/24/2024 9:41 AM CDT Narrative JCARLOS ROSS ([place]) - 08/25/2024 1:06 PM CDT Complete two weeks after completion of treatment regimen us Janet LIMA LAB BODY FLUIDS AND STOO LS ORDERABLES Final Result JCARLOS ROSS ([place]) 1 [facility] Department [place] [address] [facility] Lab * FL Esophagram, Double Contrast (08/05/2024 [...] Cesar Enciso D.O. PS: PS Report ID: [id number] Reading Location: [id number] Procedure Note Julio Cesar Enciso, DO - 08/05/2024 EXAM DESCRIPTION: FL ESOPHAGRAM BARIUM [...] Cesar Enciso D.O. PS: PS Report ID: [id number] Reading Location: [place] [address] Janet LIMA IMG FLUOROSCOPY PROCEDUR ES Final Result * (ABNORMAL) H. pylori breath test (08/02/2024 12:55 PM CDT) H. pylori, breath test Positive( A) Negative [place] ref Lab Comment: Result indicates the presence of active Helicobacter pylori infection. Test Performed by: [facility] [place] [address] Tire Repairman: Aliya Whyte Ph.D.; CLIA# [id number] Breath 08/02/2024 12:5 5 PM CDT 08/02/2024 12:58 PM CDT Janet LIMA LAB BODY FLUIDS AND STOO LS ORDERABLES Final Result J[facility]LOS ROSS ([place]) 1 [facility] Department [place] [address] [place] ref [facility] * NC REMOVAL IMPACTED CERUMEN INSTRUMENTATION UNILAT, NC REMOVAL IMPACTED CERUMEN IRRIGATION/LVG UNILAT (07/13/2024 3:30 [...] the procedure well with no immediate complications Shena Marie NP IN CLINIC/BEDSIDE ORDER DIANA [...] LAB BLOOD ORDERABLES Fi nal Result [facility] ([place]) 1 [facility] Department [place] [address] * (ABNORMAL) Differential, auto (06/29/2024 9:35 AM [...] BLOOD ORDERABLES Fi nal Result [facility] ([place]) 1 [facility] [employer] [place] [address] * (ABNORMAL) CBC with auto differential (06/29/2024 [...] CDT 06/29/2024 1:22 PM CDT Shena Marie SUPERVISOR WALL MIRROR DEPARTMENT LAB BLOOD ORDERABLES Fi nal Result JCARLOS ROSS ([place]) 1 [facility] [employer] [place] [place] [address] * TSH (06/29/2024 9:35 AM CDT) Thyroid Stimulating Hormone 3.66 0.30 - 4.20 mcIUnit/mL Blood 06/29/2024 9:35 AM CDT 06/29/2024 1:22 PM CDT Shena Marie NP LAB BLOOD ORDERABLES Fi nal Result JCARLOS ROSS ([place]) 1 [facility] [place] [address] * T4, free (06/29/2024 9:35 AM CDT) Free T4 0.99 0.90 - 1.70 ng/dL Blood 06/29/2024 9:35 AM CDT 06/29/2024 1:22 PM CDT Shena Marie NP LAB BLOOD ORDERABLES Fi nal Result Performing Organization Address [facility] de Phone Number JCARLOS [facility] ([place]) 1 [facility] [place] [address] [address] * Lipid panel (06/29/2024 9:35 AM CDT) [...] revised on 2017. Triglycerides 69 <=149 mg/dL JAYENICHELLE CODY ([place]) Comment: Interpretive Data Ages < or [...] on 2017. HDL 67 >=40 mg/dL JCARLOS PETERS) Comment: Interpretive Data Ages < or = [...] mg/dL High: >160 mg/dL Calculated using the Bashir LDL-C estimating equation. This equation was implemented on 2023. Prior to this date LDL-C was estimated using the Friedewald equation. Literature References: 1. Expert Panel on Integrated Guidelines for Cardiovascular Health and Risk Reduction in Children and Adolescents. Pediatrics 2011;128:S213 2. NCEP Expert Panel. Circulation 2004;110:227 3. Bashir Vernon et al. ANA Cardiol. 2020 July 28;5(5):540-548. doi: 10.1001/jamacardio.2020.0013 Current Interpretive Data was last revised on 2023. Non-HDL Cholesterol 92 mg/dL JCARLOS ROSS ([place]) Comment: Interpretive Data [...] last revised on 2017. Chol/HDL ratio 2 [facility] ([place]) Blood 06/29/2024 9:35 AM CDT 06/29/2024 1:22 PM CDT Narrative [facility] ([place]) - 06/29/2024 1:58 PM CDT Has the patient been fasting for 8 hours or more?->Yes Shena Marie NP LAB BLOOD ORDERABLES [facility] Result [facility] ([place]) 1 [facility] Department [place] [address] * (ABNORMAL) Comprehensive metabolic panel (06/29/2024 9:35 AM CDT) Sodium 137 135 - 145 mmol/L Potassium, pl 4.6 3.3 - 4.9 mmol/L [facility] ([place]) Chloride 99 97 - 110 mmol/L [facility] ([place]) CO2 25 22 - 32 [...] ORDERABLES nal Result [facility] ([place]) 1 [facility] [place] [address] * Dexa Axial Skeleton Bone Density 1 or 2 Site (09/03/2022 7:27 AM CDT) Anatomical Region Laterality Modality Body N/A Other 09/04/2022 12:4 9 AM CDT Narrative 09/04/2022 12:50 AM CDT EXAM DESCRIPTION: DEXA AXIAL SKELETON BONE DENSITY 1 OR MORE SITES REASON FOR STUDY: 67 y/o year old F with given history of screening. Postmenopausal Olive Grader/Model: [employer] (S/N [id number]) CLINICAL INFORMATION: Current height: 61 inches Maximum [...] Nolan Simental M.D. MF: [id number] Report ID: [id number] Reading Location: [place] [address] Procedure Note Nolan Simental MD - 09/04/2022 EXAM DESCRIPTION: DEXA AXIAL SKELETON BONE DENSITY 1 OR MORE SITES REASON FOR STUDY: 67 y/o year old F with given history of screening. Postmenopausal Olive Grader/Model: [employer] (S/N [id number]) CLINICAL INFORMATION: Current height: 61 inches Maximum [...] Nolan Simental M.D. MF: [id number] Report ID: [id number] Reading Location: [place] [address] us Darek Frias MD IMG DXA PROCEDURES Final Res ult * Hepatitis C Antibody Reflex Hepatitis C RNA Quantitative PCR (08/18/2016 8:45 AM CDT) Hep C Ab Negative Negative CERNER Blood specimen (specimen) 08/18/2016 8:45 AM CDT 08/18/2016 10:24 AM CDT us Darek Frias MD LAB MICROBIOLOGY - GENERAL O RDERABLES Final Result JCARL[facility] [id number] [address] [place] [address] * MAMMOGRAPHY (05/02/2015) Mammogram Normal Historical Provider HEALTH MAINTENANCE Final Result * COLONOSCOPY IMAGES (03/28/2014) Anatomical Region Laterality Modality Other Narrative 03/28/2014 Ordered by an unspecified provider. Historical Provider GI PROCEDURE ORDERABLES F inal Result from Last 3 Months or Most Recently Relevant to Health Maintenance Insurance [employer] [facility] MEDICARE [employer] MEDICARE GOLD Advance Directives For more information, please contact: [phone] Documents on File Type Date Recorded Patient Payroll Clerk Expl anation Advance Directives and Livin g Will 03/07/2024 8:41 AM Power of Muck Miner 03/01/2024 6:12 AM * Full Code (Latest Code Status on File) Date Activated Date Inactivated Comments 05/17/2024 7:56 AM 05/17/2024 2:00 PM * Full Code Date Activated Date Inactivated Comments 02/10/2022 8:21 AM 02/10/2022 2:22 PM * Full Code Date Activated Date Inactivated Comments 02/10/2022 8:21 AM 02/10/2022 8:21 AM Care Teams Art Framing Manager Relationship Specialty Start Date End Date Shena Marie NP 2 [facility] [address] [address] PCP - General Family Medicine 05/30/24 Janet Foote PA 4 [facility] [address] [facility] [place] [address] Gastroenterology 12/30/23 [place] [address] [address] [facility] [address] [place] [address] Consulting Physician Neurology 12/30/23 [place] [address] [address] [facility] [address] [place] [address] Consulting Physician Cardiology 12/30/23 Dilma Alonzo MD [address] [facility] [place] [address] Geotechnical Department Manager Obstetrics and Gynecology 12/30/23 Elizabeth Patterson MD [address] [facility] [address] [place] [address] Consulting Physician Rheumatology 04/07/24 Jake Lo MD [address] [facility] [address] [place] [address] Consulting Physician Urology 04/07/24 Henna Ryder, GLORIA [address] [facility] [address] [place] [address] Consulting Physician Foot and Ankle Surg 04/07/24
--- OUTSIDE RECORDS SUMMARY | 2024-09-08 12:55 | XMS_ITS | Encounter Summary ---
Author Organization [facility] Address [address] [place] [address] Care Team Providers Care Ruffling Machine Operator Name Role Phone Darek Frias MD Primary Care Provider Eunice Velazquez MD Primary Care Provide r No, Physician Primary Care Provider [phone] Janet Foote Unavailable [phone] Caroline COBB MD, Haim Godinez Unavailable [phone] Sohail Clarke MD Unavailable [phone] Dilma Alonzo MD Unavailable Hasmukh Black MD Primary Care Provider Elizabeth Patterson MD Unavailable Jake Lo MD Unavailable [phone] Henna Ryder DPM Unavailable Shena Marie NP Primary Care Provider Reason for Visit * Reason Onset Date Comments Scheduling Appointments 10/07/2019 Called f or DEXA appointment reminder Encounter Details Date Type Department Care Team (Late st Contact Info) Description 10/07/2019 Telephone [facility] [address] [place] [id number] Danilo Bryan RT Scheduling Appointments (Called for DEXA appointment reminder) Social History Tobacco Use Types Packs/Day Years Used Date Smoking Tobacco: Former Cigarettes 0.5 15 0 05/11/1980 - 05/11/1995 Smokeless Tobacco: Never Comments:Smoking History Pac ks/day: 0.5 Cigarettes Alcohol Use Standard Drinks/Week Comments Yes 0 (1 standard drink = 0.6 oz pur e alcohol) PHQ-2 Answer Date Recorded PHQ-2 Score 1 05/18/2019 Comments No Sex and Gender Information Value Date Recorded Sex Assigned at Not on file Legal Sex Female 4:23 PM AUDIOVISUAL LIBRARIAN Gender Identity Not on file Sexual Orientation Not on file documented as of this encounter Plan of Treatment Upcoming Encounters Date Type Department Care Team (Late st Contact Info) Description 10/06/2024 10:30 AM CDT Hospital Encounter [address] [address] Kalyan Grimes DO [address] [facility] [address] [place] [address] 10/06/2024 10:30 AM CDT - 10/06/2024 11:00 AM CDT Surgery [address] [address] Kalyan Grimes DO [address] [facility] [address] [place] [address] COLONOSCOPY Scheduled Procedures Name Priority Associated Diagnoses Date/Ti me COLONOSCOPY Encounter for screening colonoscopy 10/06/2024 10:30 AM CDT documented as of this encounter Visit Diagnoses Not on filedocumented in this encounter Additional Health Concerns Infection Onset Date Last Indicated Resolved Time COVID: Suspected 05/23/2020 05/23/2020 05/23/2020 9:40 PM AUDIOVISUAL LIBRARIAN COVID19 05/23/2020 05/23/2020 06/06/2020 3:07 AM AUDIOVISUAL LIBRARIAN COVID: Recovered Comment:Added based on recent COVID infection. 06/06/2020 06/08/2020 10/04/2020 3:05 AM C DT COVID: Suspected 05/01/2023 05/01/2023 05/02/2023 3:05 AM AUDIOVISUAL LIBRARIAN documented as of this encounter Care Teams Ruffling Machine Operator Relationship Specialty Start Date End Date Darek Frias MD PCP - General 06/27/16 08/31/23 Eunice Velazquez MD [address] [facility] [address] [place] [address] PCP - General Family Medicine 09/01/23 10/16/23 No, Physician PCP - General 11/26/23 12/29/23 Hasmukh Black MD [address] [place] [address] PCP - General Family Medicine 12/30/23 05/29/24 Shena Marie, ELVIA [address] [facility] [address] [place] [address] PCP - General Family Medicine 05/30/24 Janet Foote PA [address] [facility] [address] [place] [address] Gastroenterology 12/30/23 [place] [address] [address] [address] [address] Consulting Physician Neurology 12/30/23 [place] [address] [address] [address] [address] Consulting Physician Cardiology 12/30/23 Dilma Alonzo MD [address] [place] [address] Care Navigator Obstetrics and Gynecology 12/30/23 Elizabeth Patterson MD [address] [facility] [address] [place], [place] [address] Consulting Physician Rheumatology 04/07/24 Jake Lo MD [address] [facility] [address] [place], [place] [address] Consulting Physician Urology 04/07/24 Henna Ryder DPM [address] [facility] [address] [place] [address] Consulting Physician Foot and Ankle Surg 04/07/24 documented as of this encounter
--- OUTSIDE RECORDS SUMMARY | 2024-09-08 12:55 | XMS_ITS | Encounter Summary ---
Author Organization [facility] Healthcare Address [address] [place] [address] Care Team Providers Care Aviation Warfare Systems Operator Name Role Phone Janet Foote Unavailable Caroline COBB MD, Haim Godinez Unavailable Sohail Clarke MD Unavailable [phone] Dilma Alonzo MD Unavailable Elizabeth Patterson MD Unavailable Jake Lo MD Unavailable [phone] Henna Ryder DPM Unavailable [phone] Shena Marie NP Primary Care Provider Encounter Details Date Type Department Care Team (Latest Contact Info) Description 08/25/2024 Results Follow-Up [facility] Gastroenterology at [address] [place] [address] Janet Foote PA [address] [place] [address] [address] [place] [address] H. pylori breath test Social History Tobacco Use Types Packs/Day Years [...] on file Legal Sex Female 4:23 PM SMOKE CHASER Gender Identity Not on file Sexual Orientation Not on file documented as of this encounter Plan of Treatment Upcoming Encounters Date Type Department Care Team (Late st Contact Info) Description 10/06/2024 10:30 AM CDT Hospital Encounter [address] [address] Kalyan Grimes DO [address] [facility] [address] [place] [address] 10/06/2024 10:30 AM CDT - 10/06/2024 11:00 AM CDT Surgery [address] [address] Kalyan Grimes DO [address] [facility] [address] [place] [address] COLONOSCOPY Scheduled Procedures Name Priority Associated Diagnoses Date/Ti me COLONOSCOPY Encounter for screening colonoscopy 10/06/2024 10:30 AM CDT documented as of this encounter Visit Diagnoses Not on filedocumented in this encounter Care Teams Aviation Warfare Systems Operator Relationship Specialty Start Date End Date Shena Marie NP [address] [facility] [address] [place] [address] PCP - General Family Medicine 05/30/24 Janet Foote PA [address] [facility] [place] [address] Gastroenterology 12/30/23 [place] [address] [address] [address] [place] [address] Consulting Physician Neurology 12/30/23 [place] [address] [address] [facility] [address] [place] [address] Consulting Physician Cardiology 12/30/23 Dilma Alonzo MD [address] [facility] [place] [address] Sap Basis Administrator Obstetrics and Gynecology 12/30/23 Elizabeth Patterson MD [address] [place] [address] [place], [place] [address] Consulting Physician Rheumatology 04/07/24 Jake Lo MD [address] [place] [facility] [address] [place] [address] Consulting Physician Urology 04/07/24 Henna Ryder, DPM [address] [place] [facility] [address] [place] [address] Consulting Physician Foot and Ankle Surg 04/07/24 documented as of this encounter
--- OUTSIDE RECORDS SUMMARY | 2024-09-08 12:55 | XMS_ITS | Encounter Summary ---
Author Organization [facility] Address [address] [place] [address] Phone Care Team Providers Care Head Start Assistant Teacher Name Role Phone Darek Frias MD Primary Care Provider Eunice Velazquez MD Primary Care Provide r No, Physician Primary Care Provider [phone] Janet Foote Unavailable [phone] Caroline COBB MD, Haim Godinez Unavailable Sohail Clarke MD Unavailable [phone] Dilma Alonzo MD Unavailable Hasmukh Black MD Primary Care Provider Elizabeth Patterson MD Unavailable Jake Lo MD Unavailable [phone] Henna Ryder DPM Unavailable Shena Marie NP Primary Care Provider Encounter Details Date Type Department Care Team (Late st Contact Info) Description 04/08/2017 Orders Only [facility] ProviderAvinash MD [facility] [place] [address] Social History Tobacco Use Types Packs/Day Years Used Date Smoking Tobacco: Former Smokeless Tobacco: Never Comments:Smoking History Pac ks/day: 0.5 Cigarettes Alcohol Use Standard Drinks/Week Comments Yes 0 (1 standard drink = 0.6 oz pur e alcohol) Comments Unknown Sex and Gender Information Value Date Recorded Sex Assigned at Not on file Legal Sex Female 4:23 PM STOCK WORKER Gender Identity Not on file Sexual Orientation Not on file documented as of this encounter Plan of Treatment Upcoming Encounters Date Type Department Care Team (Late st Contact Info) Description 10/06/2024 10:30 AM CDT Hospital Encounter [address] [address] Kalyan Girmes DO [address] [facility] [address] [place] [address] 10/06/2024 10:30 AM CDT - 10/06/2024 11:00 AM CDT Surgery [address] [address] Kalyan Grimes DO [address] [facility] [address] [place] [address] COLONOSCOPY Scheduled Procedures Name Priority Associated Diagnoses Date/Ti me COLONOSCOPY Encounter for screening colonoscopy 10/06/2024 10:30 AM CDT documented as of this encounter Procedures Procedure Name Priority Date/Time Associated Diagnosis Comments DISCHARGE LABORATORY CUMULATIVE REPORT 04/08/2017 12:00 AM STOCK WORKER documented in this encounter Results * DISCHARGE LABORATORY CUMULATIVE REPORT (04/08/2017 12:00 AM STOCK WORKER) Narrative 04/08/2017 12:00 AM STOCK WORKER Ordered by an unspecified provider. us Historical Provider LAB BLOOD ORDERABLES Aylin l Result documented in this encounter Visit Diagnoses Not on filedocumented in this encounter Additional Health Concerns Infection Onset Date Last Indicated Resolved Time COVID: Suspected 05/23/2020 05/23/2020 05/23/2020 9:40 PM STOCK WORKER COVID19 05/23/2020 05/23/2020 06/06/2020 3:07 AM STOCK WORKER COVID: Recovered Comment:Added based on recent COVID infection. 06/06/2020 06/08/2020 10/04/2020 3:05 AM C DT COVID: Suspected 05/01/2023 05/01/2023 05/02/2023 3:05 AM STOCK WORKER documented as of this encounter Care Teams Head Start Assistant Teacher Relationship Specialty Start Date End Date Darek Frias MD PCP - General 06/27/16 08/31/23 Eunice Velazquez MD [address] [facility] [address] [place] [address] PCP - General Family Medicine 09/01/23 10/16/23 No, Physician PCP - General 11/26/23 12/29/23 Hasmukh Black MD [address] [place] [address] PCP - General Family Medicine 12/30/23 05/29/24 Shena Marie, ELVIA [address] [facility] [address] [place] [address] PCP - General Family Medicine 05/30/24 Janet Foote PA [address] [facility] [address] [place] [address] Gastroenterology 12/30/23 [place] [address] [address] [address] Consulting Physician Neurology 12/30/23 [place] [address] [address] [address] [address] Consulting Physician Cardiology 12/30/23 Dilma Alonzo MD [address] [place] [address] Garment Mender Obstetrics and Gynecology 12/30/23 Elizabeth Patterson MD [address] [address] [place], [place] [address] Consulting Physician Rheumatology 04/07/24 Jake Lo MD [address] [facility] [facility] [address] [place], [place] [address] Consulting Physician Urology 04/07/24 Henna Ryder, GLORIA [address] [facility] [address] [place] [address] Consulting Physician Foot and Ankle Surg 04/07/24 documented as of this encounter
--- OUTSIDE RECORDS SUMMARY | 2024-09-08 12:55 | XMS_ITS | Encounter Summary ---
Author Organization [facility] Address [address] [place] [address] Phone Care Team Providers Care Park Interpretive Specialist Name Role Phone Darek Frias MD Primary Care Provider Eunice Velazquez MD Primary Care Provide r No, Physician Primary Care Provider [phone] Janet Foote Unavailable Caroline COBB MD, Haim Godinez Unavailable [phone] Sohail Clarke MD Unavailable [phone] Dilma Alonzo MD Unavailable Hasmukh Black MD Primary Care Provider Elizabeth Patterson MD Unavailable [phone] Jake Lo MD Unavailable [phone] Henna Ryder DPM Unavailable Shena Marie NP Primary Care Provider Encounter Details Date Type Department Care Team (Late st Contact Info) Description 04/27/2017 Orders Only [facility] ProviderAvinash MD [facility] [place] [address] Social History Tobacco Use Types Packs/Day Years Used Date Smoking Tobacco: Former Smokeless Tobacco: Never Comments:Smoking History Pac ks/day: 0.5 Cigarettes Alcohol Use Standard Drinks/Week Comments Yes 0 (1 standard drink = 0.6 oz pur e alcohol) Comments Unknown Sex and Gender Information Value Date Recorded Sex Assigned at Not on file Legal Sex Female 4:23 PM MACHINIST FIRST CLASS Gender Identity Not on file Sexual Orientation Not on file documented as of this encounter Plan of Treatment Upcoming Encounters Date Type Department Care Team (Late st Contact Info) Description 10/06/2024 10:30 AM CDT Hospital Encounter [address] [address] Kalyan Grimes DO [address] [facility] [address] [place] [address] 10/06/2024 10:30 AM CDT - 10/06/2024 11:00 AM CDT Surgery [address] [address] Kalyan Grimes DO [address] [facility] [address] [place] [address] COLONOSCOPY Scheduled Procedures Name Priority Associated Diagnoses Date/Ti me COLONOSCOPY Encounter for screening colonoscopy 10/06/2024 10:30 AM CDT documented as of this encounter Procedures Procedure Name Priority Date/Time Associated Diagnosis Comments DISCHARGE LABORATORY CUMULATIVE REPORT 04/27/2017 12:00 AM MACHINIST FIRST CLASS documented in this encounter Results * DISCHARGE LABORATORY CUMULATIVE REPORT (04/27/2017 12:00 AM MACHINIST FIRST CLASS) Narrative 04/27/2017 12:00 AM MACHINIST FIRST CLASS Ordered by an unspecified provider. us Historical Provider LAB BLOOD ORDERABLES Aylin l Result documented in this encounter Visit Diagnoses Not on filedocumented in this encounter Additional Health Concerns Infection Onset Date Last Indicated Resolved Time COVID: Suspected 05/23/2020 05/23/2020 05/23/2020 9:40 PM MACHINIST FIRST CLASS COVID19 05/23/2020 05/23/2020 06/06/2020 3:07 AM MACHINIST FIRST CLASS COVID: Recovered Comment:Added based on recent COVID infection. 06/06/2020 06/08/2020 10/04/2020 3:05 AM C DT COVID: Suspected 05/01/2023 05/01/2023 05/02/2023 3:05 AM MACHINIST FIRST CLASS documented as of this encounter Care Teams Park Interpretive Specialist Relationship Specialty Start Date End Date Darek Frias MD PCP - General 06/27/16 08/31/23 Eunice Velazquez MD [address] [facility] [address] [place] [address] PCP - General Family Medicine 09/01/23 10/16/23 No, Physician PCP - General 11/26/23 12/29/23 Hasmukh Black MD [address] [place] [address] PCP - General Family Medicine 12/30/23 05/29/24 Shena Marie, ELVIA [address] [facility] [address] [place] [address] PCP - General Family Medicine 05/30/24 Janet Foote PA [address] [facility] [address] [place] [address] Gastroenterology 12/30/23 [place] [address] [address] [address] Consulting Physician Neurology 12/30/23 [place] [address] [address] [address] [address] Consulting Physician Cardiology 12/30/23 Dilma Alonzo MD [address] [place] [address] Forklift Material Handler Obstetrics and Gynecology 12/30/23 Elizabeth Patterson MD [address] [facility] [address] [place], [place] [address] Consulting Physician Rheumatology 04/07/24 Jake Lo MD [address] [facility] [address] [place], [place] [address] Consulting Physician Urology 04/07/24 Henna Ryder, GLORIA [address] [facility] [address] [place] [address] Consulting Physician Foot and Ankle Surg 04/07/24 documented as of this encounter
--- OUTSIDE RECORDS SUMMARY | 2024-09-08 12:55 | XMS_ITS ---
Author Organization [facility] Address [address] [place] [address] Care Team Providers Care Service And Repair Supervisor Name Role Phone CathleenJanet jordan Sonya LIMA Unavailable Caroline COBB MD, Carlos M. Unavailable Soahil Clarke MD Unavailable [phone] Dilma Alonzo MD Unavailable [phone] Elizabeth Patterson MD Unavailable Jake Lo MD Unavailable [phone] Henna Ryder DPM Unavailable Shena Marie NP Primary Care Provider Active Problems Problem Noted Date Diagnosed Date Positive H. pylori test 05/16/2024 Encounter for screening colonoscopy 04/12/2024 Hereditary and idiopathic neuropathy 04/07/2024 Overview (04/07/2024): Follows with Neurology Assessment & Plan (04/07/2024 9:07 AM WELDER AND FITTER): - chronic condition - follows with Neurology - on Gabapentn 600 mg TID - currently on Tramadol PRN per neurology - affects her ambulation/mobility - provided handicap placard Screen for colon cancer 04/07/2024 Assessment & Plan (04/07/2024 9:17 AM WELDER AND FITTER): - colon cancer screening due - last colonoscopy done on 2013, repeat in 10 years, placed referral to GI Hematuria 02/11/2024 Urgency incontinence 02/11/2024 Overview (04/07/2024): Following with Urology Assessment & Plan (04/07/2024 9:12 AM WELDER AND FITTER): - chronic condition, better controlled - has [...] 06/23/2022 Assessment & Plan (02/08/2023 10:40 PM WELDER AND FITTER): Mild chronic and asymptomatic. Check yearly Assessment [...] Plan (06/13/2020 11:26 AM CDT): Try Claritin [id number]. Anemia 12/23/2018 Assessment & Plan (02/08/2023 10:39 PM WELDER AND FITTER): Repeat CBC and laboratory workup before next visit. Assessment & Plan (03/11/2022 11:46 AM WELDER AND FITTER): Condition is stable. CBC ordered today. Assessment & Plan (06/18/2021 11:40 AM CDT): Mild chronic stable, previous lab workup unremarkable. Assessment & Plan (12/23/2018 2:03 PM CDT): Check iron studies, TSH, free T4, B12, folate, LDH, UA with microscopy and call back for results. Symptoms of anemia discussed at length which would prompt repeat visit if develops. Follow-up with her oncologist/older adult social work specialist as they direct. Acquired hypothyroidism 05/13/2018 Assessment & Plan (07/13/2024 3:44 PM CDT): Lab Results Component Value Date TSH 3.66 06/29/2024 -chronic, controlled -patient currently takes Synthroid 25 mcg daily -most recent TSH within normal range -recent lab work stable -continue current treatment plan Assessment & Plan (04/07/2024 9:02 AM WELDER AND FITTER): Lab Results Component Value Date TSH 3.52 [...] plan Assessment & Plan (02/08/2023 10:39 PM WELDER AND FITTER): Patient is asymptomatic on current dose of [...] year. Assessment & Plan (05/18/2019 6:09 PM WELDER AND FITTER): She remains asymptomatic will check thyroid studies [...] plan Assessment & Plan (02/08/2023 10:40 PM WELDER AND FITTER): Calcium, vitamin-D, weight-bearing exercise continue Prolia Assessment [...] 2021. Assessment & Plan (05/18/2019 6:10 PM WELDER AND FITTER): Continue calcium, vitamin-D, weight-bearing exercise, risedronate and [...] p.r.n. Assessment & Plan (05/11/2017 6:13 PM WELDER AND FITTER): Trial of Imitrex. Discuss further with her [...] fall prevention, proper nutrition, and suggested joining [facility] to accomplish most of these goals. [...] longer needs mammograms bilateral mastectomy. Follow-up the latex fashions designer as they direct. We will see her back in 1 year for physical and fasting lab sooner if needed. Assessment & Plan (05/18/2019 6:12 PM WELDER AND FITTER): Flu shot each December. Tetanus booster every [...] needed. Assessment & Plan (05/11/2017 6:14 PM WELDER AND FITTER): Flu shot each December. Tetanus booster every 10 years. Colonoscopy due February 2024. Declining mammogram status post bilateral mastectomies. We will see her back in 1 year with fasting lab sooner if needed. 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 Assessment & Plan (03/11/2022 11:48 AM WELDER AND FITTER): -condition is stable -continue seeing Dr. Clarke cardiology -please contact Dr. Clarke's office and ask him how long the aspirin 81 mg should be held prior to cataract surgery. Assessment & Plan (06/18/2021 11:39 AM CDT): Continue current medication regimen follow up with senior front end engineer as they direct Assessment & Plan (06/13/2020 11:26 AM CDT): Continue current medication regimen and follow up with senior front end engineer as they direct. Assessment & Plan (05/18/2019 6:10 PM WELDER AND FITTER): Continue current medication regimen and follow up with senior front end engineer as they direct. Assessment & Plan (06/21/2018 6:26 PM CDT): Continue rosuvastatin, metoprolol, isosorbide mononitrate, aspirin and follow up with senior front end engineer as they direct. Assessment & Plan (05/11/2017 6:13 PM WELDER AND FITTER): Continue aspirin, metoprolol, rosuvastatin, imdur Glaucoma 05/08/2016 Overview (04/07/2024): Follows with Ophthalmology Assessment & Plan (05/11/2017 6:14 PM WELDER AND FITTER): Follow-up with her product support technician as they direct. Systemic lupus erythematosus 05/08/2016 Overview (04/07/2024): Follows with Rheumathology Assessment & Plan (12/31/2023 6:08 AM CDT): -chronic, stable -follows with Rheumatology -currently takes Plaquenil 200 mg daily Continue current treatment plan with specialist Assessment & Plan (02/08/2023 10:41 PM WELDER AND FITTER): Stable on Plaquenil and should follow up with supervisor aircraft cleaning as they direct Assessment & Plan (06/23/2022 9:55 AM CDT): Well controlled on Plaquenil and follow-up with supervisor aircraft cleaning as they direct. Assessment & Plan (06/18/2021 11:38 AM CDT): Well controlled on her Plaquenil and should follow-up with supervisor aircraft cleaning as they direct. Assessment & Plan (06/13/2020 11:25 AM CDT): Well controlled on her Plaquenil and should follow-up with supervisor aircraft cleaning as they direct. Assessment & Plan (05/18/2019 6:09 PM WELDER AND FITTER): Continue her Plaquenil and follow up with her supervisor aircraft cleaning as they direct. Assessment & Plan (06/21/2018 6:26 PM CDT): Continue Plaquenil and follow up with her supervisor aircraft cleaning as they direct. Assessment & Plan (05/11/2017 6:12 PM WELDER AND FITTER): Continue Plaquenil and follow up with her supervisor aircraft cleaning as they direct. Dupuytren's contracture 01/09/2015 Assessment & Plan (06/13/2020 11:27 AM CDT): Referral to plastic surgery. Malignant neoplasm of breast 04/21/2014 Overview (05/11/2017): L 1997 s/pmastectomy; R 2004 mastectomy and chemo Assessment & Plan (05/18/2019 6:11 PM WELDER AND FITTER): Patient has been discharged by her oncologist. No need for mammograms considering bilateral mastectomy. Assessment & Plan (06/21/2018 6:27 PM CDT): Follow-up with her oncologist as they direct. Yearly mammograms recommended. Assessment & Plan (05/11/2017 6:13 PM WELDER AND FITTER): Follow-up with her oncologist as they direct. Neurofibromatosis 04/21/2014 Assessment & Plan (06/23/2022 9:57 AM CDT): No current complaints and continue observation. Assessment & Plan (06/18/2021 11:39 AM CDT): No current complaints and continue observation. Assessment & Plan (06/13/2020 11:26 AM CDT): No current complaints and continue observation. Assessment & Plan (05/18/2019 6:11 PM WELDER AND FITTER): Continue observation for now. Assessment & Plan (06/21/2018 6:27 PM CDT): Continue observation for now. Assessment & Plan (05/11/2017 6:14 PM WELDER AND FITTER): Continue observation for now. Hidradenitis suppurativa 08/13/2013 Assessment & Plan (06/18/2021 11:37 AM CDT): Well controlled on minocycline Assessment & Plan (05/18/2019 6:10 PM WELDER AND FITTER): Well controlled on minocycline. Assessment & Plan (06/21/2018 6:25 PM CDT): Continue minocycline. Assessment & Plan (05/11/2017 6:09 PM WELDER AND FITTER): Continue minocycline with good success. Hemorrhoids 08/13/2013 [...] plan Assessment & Plan (04/07/2024 9:03 AM WELDER AND FITTER): BP Readings from Last 3 Encounters: 04/07/24 [...] hypertension. Assessment & Plan (02/08/2023 10:40 PM WELDER AND FITTER): Blood pressure well controlled on metoprolol Assessment & Plan (06/23/2022 9:56 AM CDT): Well controlled on her metoprolol. Assessment & Plan (03/11/2022 11:47 AM WELDER AND FITTER): HPI: Condition is stable A&P: Discussed/ordered labs, [...] recommended. Assessment & Plan (05/18/2019 6:10 PM WELDER AND FITTER): Well controlled on the current regimen. Avoidance of salt, proper body weight, and routine exercise recommended. Assessment & Plan (06/21/2018 6:25 PM CDT): Well controlled on the current regimen. Avoidance of salt, proper body weight, and routine exercise recommended. Assessment & Plan (05/11/2017 6:12 PM WELDER AND FITTER): Well controlled on the current regimen. Avoidance of salt, proper body weight, and routine exercise recommended. Mixed hyperlipidemia 11/05/2012 Assessment & Plan (07/13/2024 3:44 PM CDT): -chronic, controlled -currently takes rosuvastatin 10 mg -Discussed importance of well-balanced diet -recent lab values stable -refill of medication provided -continue current treatment plan Assessment & Plan (04/07/2024 9:02 AM WELDER AND FITTER): -chronic, stable -currently takes rosuvastatin 10 mg [...] plan Assessment & Plan (02/08/2023 10:39 PM WELDER AND FITTER): Well controlled on current therapy and will [...] months. Assessment & Plan (05/18/2019 6:10 PM WELDER AND FITTER): Well controlled on current therapy and will check a lipid panel and LFTs in 6 months. Assessment & Plan (06/21/2018 6:25 PM CDT): Well controlled on current therapy and will check a lipid panel and LFTs in 12 months. Assessment & Plan (05/11/2017 6:10 PM WELDER AND FITTER): Well controlled on current therapy and will check a lipid panel and LFTs in 12 months. Current Treatment and Therapy Plans No current plan information found. Past Treatment and Therapy Plans No past plan information found. Lifetime Dose Tracking * Chemical Lifetime Dose Automatic Entry Manual Entr y Fluoro Time 4.945 minutes 4.945 minutes 0 minutes Air kerma at the reference point (Ka,r) 72.17 mGy 7 2.17 mGy 0 mGy Resolved Problems Problem Noted Date Diagnosed Date Resolved Date Acute bronchitis 05/01/2023 12/29/2023 Assessment & Plan (05/24/2023 2:51 PM WELDER AND FITTER): Azithromycin Tessalon Perles and call back if no improvement. Muscle strain 05/01/2023 04/07/2024 Assessment & Plan (05/24/2023 2:51 PM WELDER AND FITTER): Stretching exercises demonstrated. Avoid aggravating activities. Low-dose anti-inflammatories and call back if no improvement for physical therapy evaluation. H. pylori infection 06/23/2022 12/29/19 Assessment & Plan (06/23/2022 9:39 AM CDT): F/u with GI as they direct. Preop examination 05/15/2022 05/01/2023 Assessment & Plan (05/15/2022 9:29 AM WELDER AND FITTER): She understands that no procedure is risk-free [...] 04/07/2024 Assessment & Plan (05/15/2022 9:29 AM WELDER AND FITTER): She will be going For left cataract extraction 05/30/2022 Assessment & Plan (03/11/2022 11:48 AM WELDER AND FITTER): Patient is scheduled for right cataract surgery [...] 04/07/2024 Assessment & Plan (02/17/2020 3:42 PM WELDER AND FITTER): X-rays of her right hip and knee [...] Hypercholesterolemia Assessment & Plan (05/11/2017 6:12 PM WELDER AND FITTER): Well controlled on current therapy and will check a lipid panel and LFTs in 12 months. Thumb pain 01/29/2015 04/07/2024 Shoulder pain 01/08/2015 04/07/2024 Overview (07/05/2016): Shoulder pain Cough 11/10/2013 05/11/2017 Overview (07/05/2016): Cough Iron deficiency anemia 02/07/201105/11 Overview (07/03/2016): Iron deficiency anemia
== END 2024-09-08 13:56 | disposition home or self-care (01) ==
PROVIDERS: Emergency Provider Nurse Practitioner Family
DX: M53.3 Sacrococcygeal disorders, not elsewhere classified (principal); M54.32 Sciatica, left side; I10 Essential (primary) hypertension; E78.00 Pure hypercholesterolemia, unspecified; G62.9 Polyneuropathy, unspecified
CPT/HCPCS: 73502; 96372; 99213; A9270; G0463; J1885